=== PATIENT | male | born 1985 | race Caucasian/White ===

== ENCOUNTER 2019-06-25 09:44 | Emergency (ER) | payer OTHER, SELFPAY ==
[2019-06-25 09:55] VITALS: BP 121/86; PULSE 102; RESP 16; TEMP 36.7; O2SAT 95
--- NOTE | 2019-06-25 09:55 | ED.GENADULT ---
HPI - General Adult General Chief complaint: Upper Respiratory Infection Stated complaint: ST,congestion,cough Time Seen by Provider: 06/25/19 10:08 Source: patient and RN notes reviewed Mode of arrival: ambulatory Limitations: no limitations History of Present Illness HPI narrative: This is a 33 years old male presented office for evaluation of linger cough for several weeks.He was seen here about 2 weeks ago with similar symptoms, he got treated with steroid cough medicine and inhaler with minimal relief. Symptoms gotten worse for the last few day with hoarseness, head congestion,and intermittent productive cough.He also tried several other upso-saj-nrailjn for his cough with no relief the only thing that seem to work is Stephane pad. I reviewed patient previous visit. HPI - URI/Sore Throat General Chief Complaint: Upper Respiratory Infection Stated Complaint: Cough Time Seen by Provider: 06/10/19 13:25 Source: patient and RN notes reviewed Mode of arrival: ambulatory Limitations: no limitations History of Present Illness HPI Narrative: Patient presents today with a 4-day history of productive cough, chest wall pain. Denies any additional symptoms to include shortness of breath, fever, congestion, rhinorrhea. He has been taking Mucinex, rfdc-tfl-iymssay cough medicine and cough drops without relief. Reports history of bronchitis. Denies history of asthma. He is a non-smoker. MD elicited complaint: cough Related Data Home Medications Medication Instructions Recorded Confirmed atenolol 50 mg PO DAILY 06/25/19 06/25/19 cholecalciferol (vitamin D3) 2,000 unit PO DAILY 06/25/19 06/25/19 [Vitamin D3] enalapril maleate 5 mg PO DAILY 06/25/19 06/25/19 famotidine [Pepcid] 20 mg PO DAILY 06/25/19 06/25/19 fluticasone propionate [Flonase 1 spray INTRANASAL DAILY 06/25/19 06/25/19 Allergy Relief] levetiracetam [Keppra] 1,000 mg PO BID 06/25/19 06/25/19 omeprazole 40 mg PO DAILY 06/25/19 06/25/19 rivaroxaban [Xarelto] 20 mg PO DAILY 06/25/19 06/25/19 Allergies Allergy/AdvReac Type Severity Reaction Status Date / Time No Known Allergies Allergy Verified 05/02/19 12:43 Review of Systems Review of Systems: Narrative: CONSTITUTIONAL: Denies fever ENT: Reports congestion, hoarseness. Denies sore throat, otalgia. CARDIOVASCULAR: Denies chest pain, palpitations RESPIRATORY: Denies dyspnea, wheezing. Reports cough GASTROINTESTINAL: Denies abdominal pain, nausea, vomiting, diarrhea. GENITOURINARY: Denies urinary symptoms or discharge SKIN: Denies rash MUSCULOSKELETAL: Denies acute back pain, joint pain, or myalgia. NEUROLOGIC: Denies numbness, or focal weakness. 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 EYES: Sclera clear/white. Vision is grossly intact. EARS: External ears normal, auditory canals clear and without drainage, TMs normal without perforation. Hearing grossly intact. NOSE: External nose normal with no obvious nasal discharge, nares without redness, no rhinorrhea. THROAT: Mucous membranes moist, posterior pharynx erythema with drainage. Sound hoarse. NECK: Neck supple, non-tender without lymphadenopathy, masses or thyromegaly. CARDIOVASCULAR: tachy, rate and rhythm without murmurs, gallops, or rubs. RESPIRATORY: Clear to auscultation. Breath sounds equal bilaterally. No wheezes, rales, or rhonchi. GASTROINTESTINAL: Abdomen soft, non-tender, nondistended. Bowel sounds are active. No hepato-splenomegaly, or palpable ma
== END 2019-06-25 10:20 | disposition home or self-care (01) ==
PROVIDERS: Emergency Provider Nurse Practitioner
DX: J06.9 Acute upper respiratory infection, unspecified (principal); R05 Cough; G40.909 Epilepsy, unspecified, not intractable, without status epilepticus; K21.9 Gastro-esophageal reflux disease without esophagitis; Z86.718 Personal history of other venous thrombosis and embolism; Q25.5 Atresia of pulmonary artery; Q22.4 Congenital tricuspid stenosis
CPT/HCPCS: 99213; G0463

== ENCOUNTER 2019-08-03 10:12 | Emergency (ER) | payer OTHER, SELFPAY ==
[2019-08-03 10:22] VITALS: BP 105/92; PULSE 102; RESP 16; TEMP 36.8; O2SAT 98
--- NOTE | 2019-08-03 11:10 | ED.GENADULT ---
HPI - General Adult General Chief complaint: Eye Problems Stated complaint: R eye problems Source: patient and RN notes reviewed Mode of arrival: ambulatory Limitations: no limitations History of Present Illness HPI narrative: 33-year-old male presents with complaints of right eye irritation and redness for the past 2 days. No treatment. [place] says he can not keep his RT eye open and mother told him to come and get evaluated. Denies injuries or trauma to eye. [place] denies sensation of foreign body and has no recognition of getting anything into his eye (s). Mild redness, no drainage. No recalls of being outside or coming in contact of any material that could have gotten into his eyes. No exacerbating factors. Relieving factors is closing eyes. Denies blurred vision, double vision, or pain of eye with movement. Denies fever or chills. Remains active. Some parts of this dictation were generated by voice recognition software and may contain typographical and/or grammatical inaccuracies. Related Data Home Medications Medication Instructions Recorded Confirmed atenolol 50 mg PO DAILY 06/25/19 08/03/19 cholecalciferol (vitamin D3) 2,000 unit PO DAILY 06/25/19 08/03/19 [Vitamin D3] enalapril maleate 5 mg PO BID 06/25/19 08/03/19 famotidine [Pepcid] 20 mg PO DAILY 06/25/19 08/03/19 fluticasone propionate [Flonase 1 spray INTRANASAL DAILY 06/25/19 08/03/19 Allergy Relief] levetiracetam [Keppra] 1,000 mg PO BID 06/25/19 08/03/19 omeprazole 40 mg PO DAILY 06/25/19 08/03/19 rivaroxaban [Xarelto] 20 mg PO DAILY 06/25/19 06/25/19 albuterol sulfate [ProAir HFA] 2 inh INHALATION DIRECTED 08/03/19 08/03/19 Allergies Allergy/AdvReac Type Severity Reaction Status Date / Time No Known Allergies Allergy Verified 05/02/19 12:43 Review of Systems Review of Systems: Narrative: CONSTITUTIONAL: Denies fever, chills, sweats. EYES: Denies visual changes. Complains of RT eye redness, irritation. Denies foreign body sensation, discharge. ENT: Denies rhinorrhea, congestion, sore throat, otalgia. CARDIOVASCULAR: Denies chest pain, palpitations, edema. RESPIRATORY: Denies dyspnea, wheezing, cough. GASTROINTESTINAL: Denies abdominal pain, nausea, vomiting, diarrhea. GENITOURINARY: Denies dysuria, hematuria, abnormal discharge. SKIN: Denies rash or itching. MUSCULOSKELETAL: Denies acute back pain, joint pain, or myalgia. NEUROLOGIC: Denies numbness or focal weakness. PSYCHIATRIC: Denies anxiety or depression. All systems reviewed & are unremarkable except as noted in HPI and below. [facility] Past Medical History Medical History (Updated 08/03/19 @ 11:27 by FABIO Daniel) ADHD Asthma Epilepsy GERD (gastroesophageal reflux disease) History of DVT (deep vein thrombosis) Hypoplastic right heart Pulmonary atresia Thrombosis Tricuspid atresia Surgical History Surgical History (Updated 08/03/19 @ 11:27 by FABIO Daniel) History of chest tube placement History of vascular surgery Right coronary sinus repair Family History Family History (Updated 08/03/19 @ 11:28 by FABIO Daniel) Other No significant family history Social History Social History (Updated 08/03/19 @ 11:28 by FABIO Daniel) Smoking status: Never smoker Second hand tobacco smoke exposure: No Alcohol intake: never Substance use: never Living arrangements: with family Occupation/Education: unemployed Gender identity (if verbalized by the patient): Male Comments At time of signature, I have reviewed and agree with nursing past medical, surgical, social, and family history. Please see nursing chart for further information. There is no relevant family history pertinent to the presenting complaint. Exam Narrative: Exam Narrative: GENERAL: This is a well-nourished, well-developed patient, in no apparent distress. HEAD: normocephalic, atraumatic. EYES: PERRL. Sclera clear/white to LT eye only.
[2019-08-03 11:15] VITALS: PULSE 101
== END 2019-08-03 11:15 | disposition home or self-care (01) ==
PROVIDERS: Emergency Provider Nurse Practitioner Family
DX: S05.01XA Injury of conjunctiva and corneal abrasion without foreign body, right eye, initial encounter (principal); X58.XXXA Exposure to other specified factors, initial encounter; J45.909 Unspecified asthma, uncomplicated; G40.909 Epilepsy, unspecified, not intractable, without status epilepticus; K21.9 Gastro-esophageal reflux disease without esophagitis; Z86.718 Personal history of other venous thrombosis and embolism; Q22.6 Hypoplastic right heart syndrome; Q25.5 Atresia of pulmonary artery; Q22.4 Congenital tricuspid stenosis; Z79.01 Long term (current) use of anticoagulants
CPT/HCPCS: 99213; A9270; G0463

== ENCOUNTER 2019-08-15 11:00 | Emergency (ER) | payer OTHER, SELFPAY ==
[2019-08-15] VITALS (7 sets, daily range): BP systolic 117–143; BP diastolic 82–103; PULSE 96–118; RESP 16–20; TEMP 36.2–36.6; O2SAT 97–100
--- NOTE | ~2019-08-15 | XR_ITS ---
XR chest 1V portable 08/15/2019 11:45 Indication: Cough Procedure: AP portable chest Comparison: Comparison to multiple prior studies sequentially, with oldest reviewed study dated 02/09. Findings: Status post median sternotomy. Cardiomegaly. No focal air space disease, pulmonary edema, p leural effusion or suspected pneumothorax. There is dextroscoliosis of the thoracic spine. There is a pical pleural thickening. Impression: 1: No acute cardiopulmonary disease. 2: Cardiomegaly. Reviewed, dictated and finalized at location A. Impression: 1: No acute cardiopulmonary disease. 2: Cardiomegaly.
--- NOTE | 2019-08-15 11:18 | ED.NAVMDI ---
HPI - Nausea/Vomiting/Diarrhea General Chief complaint: Nausea/Vomiting/Diarrhea Stated complaint: vomiting and diarrhea Time Seen by Provider: 08/15/19 11:13 Source: patient, family (mother) and RN notes reviewed Mode of arrival: ambulatory Limitations: no limitations History of Present Illness HPI Narrative: A 33 y/o male presents to the ED with N/V/D for the past couple days. He states that he first developed a white productive cough 5 days ago and then 3 days ago he developed diarrhea, followed by N/V the next day. He reports associated SOB, FAY, and CP when he coughs. He notes that his rt ear is bugging him but is unable to describe it better. The pt's mother also notes that she works and [employer] and the pt's grandfather, who both live with the pt, works at [employer]. He denies any fevers, rhinorrhea, nasal congestion, sore throat, or dysuria. MD elicited complaint: nausea, vomiting and diarrhea Onset (ago): day(s) (a couple) Associated nausea: Yes Associated symptoms: chest pain (when he coughs), cough (white productive), headaches, shortness of breath and other (rt ear bugging him) Related Data Home Medications Medication Instructions Recorded Confirmed atenolol 50 mg PO DAILY 06/25/19 08/03/19 cholecalciferol (vitamin D3) 2,000 unit PO DAILY 06/25/19 08/03/19 [Vitamin D3] enalapril maleate 5 mg PO BID 06/25/19 08/03/19 famotidine [Pepcid] 20 mg PO DAILY 06/25/19 08/03/19 fluticasone propionate [Flonase 1 spray INTRANASAL DAILY 06/25/19 08/03/19 Allergy Relief] levetiracetam [Keppra] 1,000 mg PO BID 06/25/19 08/03/19 omeprazole 40 mg PO DAILY 06/25/19 08/03/19 rivaroxaban [Xarelto] 20 mg PO DAILY 06/25/19 06/25/19 albuterol sulfate [ProAir HFA] 2 inh INHALATION DIRECTED 08/03/19 08/03/19 lactulose 08/15/19 Allergies Allergy/AdvReac Type Severity Reaction Status Date / Time No Known Allergies Allergy Verified 05/02/19 12:43 Review of Systems Review of Systems: All systems reviewed & are unremarkable except as noted in HPI and below Constitutional: Constitutional: Denies fever(s) ENT: Denies nasal congestion, Denies nasal discharge, Denies sore throat and Reports other (rt ear bugging him) Cardiovascular: Cardiovascular: Reports chest pain (when he coughs) Respiratory: Respiratory: Reports cough (white productive) and Reports dyspnea Gastrointestinal: Gastrointestinal: Reports diarrhea, Reports nausea and Reports vomiting Genitourinary: Genitourinary: Denies dysuria Neurologic: Reports headache(s) PMFSH Past Medical History Medical History (Updated 08/15/19 @ 15:45 by Kaci Jacinto MD) ADHD Asthma Epilepsy Sathish type craniosynostosis GERD (gastroesophageal reflux disease) Heart murmur History of DVT (deep vein thrombosis) Hx of seizure disorder Hypoplastic right heart Pulmonary atresia Renal disease Thrombosis Tricuspid atresia Surgical History Surgical History (Updated 08/15/19 @ 12:24 by Pedro Pandya) History of Frank-Taussig shunt History of chest tube placement History of Ed shunt History of vascular surgery Right coronary sinus repair Hx of cardiac cath Family History Family History Other No significant family history Social History Social History Smoking status: Never smoker Second hand tobacco smoke exposure: No Alcohol intake: never Substance use: never Gender identity (if verbalized by the patient): Male Comments PCP: Dr. Israel. Cardiology: Dr. Raphael. Exam Const: General: cooperative, no acute distress and alert Nutritional Appearance: well nourished Orientation/consciousness: patient oriented x3 Limitations: no limitations HENMT: Mouth: Yes lip normal and Yes moist mucous membranes Resp: Effort & Inspection: normal respiratory effort Auscultation: clear to auscultation bilaterally Cardio: Rate: tachycardic Rhythm: regular
[2019-08-15 11:28] LABS: Basophils Percent Auto 0.3 % (0.2-1.2); Eosinophils Absolute Auto 0.1 K/mm3 (0-0.3); Eosinophils Percent Auto 0.9 % (0-4.4); Hematocrit 53.4 % (42.0-52.0); Hemoglobin 18.5 g/dL (14.0-18.0); Immature Granulocyte Absolute 0.03 K/mm3 (0.00-0.031); Immature Granulocyte Percent A 0.3 % (0-0.5); Lymphocytes Absolute Auto 1.67 K/mm3 (0.9-3.2); Lymphocytes Percent Auto 15.8 % (18.3-44.2); Mean Corpuscular HGB Conc 34.6 g/dl (32-36); Mean Corpuscular Volume 92.4 fl (80-100); Monocytes Absolute Auto 0.7 K/mm3 (0.1-0.6); Neutrophils Percent Auto 75.7 % (45.5-73.1); Platelet Count Result 180 k/mm3 (150-375); Red Blood Count 5.78 M/mm3 (4.6-6.20); Red Cell Distribution Width 12.2 % (11.5-14.5); White Blood Count 10.6 K/mm3 (4.5-10.0)
[2019-08-15] MEDS: LACTATED RINGERS 1,000 ML 999 ML IV CONT ×2 (11:30→14:34)
[2019-08-15 11:40] LABS: Alanine Aminotransferase 34 U/L (4-50); Alkaline Phosphatase 118 U/L (38-126); Aspartate Amino Transferase 37 U/L (17-59); Bilirubin,Total 3.8 mg/dL (0.2-1.3); Blood Urea Nitrogen 19 mg/dL (9-20); Calcium 9.6 mg/dL (8.4-10.2); Carbon Dioxide 24 mmol/L (22-30); Chloride 102 mmol/L (98-107); Estimated CRCL calculation 103 ml/min; Estimated Glomerular Filt Rate > 60; Glucose 111 mg/dL (75-110); Lipase 43 U/L (23-300); Potassium 4.4 mmol/L (3.4-5.0); Sodium 135 mmol/L (137-145)
--- NOTE | 2019-08-15 11:59 | PC.NURSE ---
Pt has urinal at bedside. Instructed to provide urine as soon as possible. IV fluids running.
--- NOTE | 2019-08-15 12:26 | PC.NURSE ---
Patient tried to provide urine at this time. Patient refused to allow straight cath at this time. Patient was told that we need urine for ordered tests. He still will not allow straight cath
[2019-08-15 13:00] LABS: Add Urine Microscopic? YES; Appearance Urine Clear (Clear); Bilirubin Urine Negative (Negative); Blood Urine Negative (Negative); Color Urine Yellow (Yellow); Glucose Urine UA Negative (Negative); Ketones Urine Negative (Negative); Leukocyte Esterase Ur Negative LEU/UL (Negative); Mucus Urine Rare /lpf; Nitrate Urine Negative (Negative); Protein Urine 3+ mg/dL (Negative); Urobilinogen Urine Negative mg/dL (<2.0); WBC Urine 0-3 /hpf
--- NOTE | 2019-09-23 13:49 | PC.NURSE ---
LATE ENTRY This note is being entered to document information to the patient's record. The following information was omitted on [08/15/2019], by [KL]. Pt received 1000ml infusion of LR that ended 08/15/2019 at 1535.
== END 2019-08-15 16:09 | disposition home or self-care (01) ==
PROVIDERS: Emergency Provider Emergency Medicine; PCP Family Medicine
DX: B34.9 Viral infection, unspecified (principal); E86.0 Dehydration; Z20.828 Contact with and (suspected) exposure to other viral communicable diseases; J45.909 Unspecified asthma, uncomplicated; G40.909 Epilepsy, unspecified, not intractable, without status epilepticus; K21.9 Gastro-esophageal reflux disease without esophagitis; Z86.718 Personal history of other venous thrombosis and embolism; Q25.5 Atresia of pulmonary artery; Q22.4 Congenital tricuspid stenosis; N28.9 Disorder of kidney and ureter, unspecified; Q24.8 Other specified congenital malformations of heart; I51.7 Cardiomegaly
CPT/HCPCS: 36415; 71045; 80053; 81001; 83690; 85025; 87804; 96360; 96361; 99283; J7120

== ENCOUNTER 2019-09-15 13:00 | Emergency (ER) | payer OTHER, SELFPAY ==
--- NOTE | ~2019-09-15 | XR_ITS ---
EXAMINATION: XR chest 2V DATE: 09/15/2019 13:55 INDICATION: Chest pain TECHNIQUE: PA and lateral views of the chest are obtained. COMPARISON: 08/15/2019 FINDINGS: The lungs are free of acute opacities. There is no pleural effusion or pneumothorax. Cardio megaly is noted. There are changes of congenital heart surgery. There is mild thoracic spondylosis. IMPRESSION: 1. No acute cardiopulmonary abnormality. Reviewed, dictated and finalized at location A.
[2019-09-15 13:06] VITALS: BP 129/89; PULSE 123; RESP 26; TEMP 36.6; O2SAT 97
[2019-09-15 13:21] VITALS: PULSE 108
--- NOTE | 2019-09-15 13:26 | ED.CHESTPAIN ---
HPI - Chest Pain General Chief Complaint: Chest Pain Stated Complaint: throwing up, chest pain, fast heart beat Time Seen by Provider: 09/15/19 13:21 History of Present Illness HPI narrative: Patient is a 33-year-old male with history of congenital heart disease with cardiac surgery as a child who presents the ER with chest pain. Chest pain occurred yesterday while coughing. When he coughs and has the pain will last for 2 minutes maximum. It is alleviated by rest and he has no exertional chest pain. No history of actual coronary disease requiring intervention. He was recently in the ER for a viral type illness. He follows with Dr. Israel. Denies any new fever/chills/sweats/sore throat/dyspnea. He does have intermittent cough without postnasal drip. Family is with him and had no additional concerns. Patient has been staying at home and has not been exposed to any other illness in the community that they are aware of. Related Data Home Medications Medication Instructions Recorded Confirmed atenolol 50 mg PO DAILY 06/25/19 08/03/19 cholecalciferol (vitamin D3) 2,000 unit PO DAILY 06/25/19 08/03/19 [Vitamin D3] enalapril maleate 5 mg PO BID 06/25/19 08/03/19 famotidine [Pepcid] 20 mg PO DAILY 06/25/19 08/03/19 fluticasone propionate [Flonase 1 spray INTRANASAL DAILY 06/25/19 08/03/19 Allergy Relief] levetiracetam [Keppra] 1,000 mg PO BID 06/25/19 08/03/19 omeprazole 40 mg PO DAILY 06/25/19 08/03/19 rivaroxaban [Xarelto] 20 mg PO DAILY 06/25/19 06/25/19 albuterol sulfate [ProAir HFA] 2 inh INHALATION DIRECTED 08/03/19 08/03/19 lactulose 08/15/19 Allergies Allergy/AdvReac Type Severity Reaction Status Date / Time No Known Allergies Allergy Verified 05/02/19 12:43 Review of Systems Review of Systems: All systems reviewed & are unremarkable except as noted in HPI and below Constitutional: Constitutional: Denies chills, Denies fever(s) and Denies weakness ENT: Denies nasal congestion and Denies sore throat Cardiovascular: Cardiovascular: Reports chest pain and Denies radiating jaw, neck or arm pain Respiratory: Respiratory: Reports cough, Denies dyspnea and Denies wheezing Gastrointestinal: Gastrointestinal: Denies abdominal pain, Denies nausea and Denies vomiting PMFSH Past Medical History Medical History (Updated 09/15/19 @ 15:31 by Kendall Flanagan MD) ADHD Asthma Epilepsy Sathish type craniosynostosis GERD (gastroesophageal reflux disease) Heart murmur History of DVT (deep vein thrombosis) Hx of seizure disorder 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 HEAD: Normocephalic, atraumatic. NECK: Supple. CHEST: Clear to auscultation. No respiratory distress. HEART: tachycardic and regular with a gallop. Normal peripheral pulses. ABDOMEN: Soft, nontender, nondistended. EXTREMITIES: Normal range of motion. No edema. SKIN: Warm, dry, no rash. NEURO: Alert and oriented x3. Course Course Emergency Course: Discussed results with the patient and his family member. Also discussed with Dr. Israel. The plan is to add blood cultures as patient has been in the hospital twice in the last month with concerns for infection. Patient has a leukocytosis with a shift without any source of infection. Patient received IV vancomycin and then receive Augmentin for home.
[2019-09-15 13:48] LABS: Basophils Percent Auto 0.2 % (0.2-1.2); Eosinophils Percent Auto 0.2 % (0-4.4); Hematocrit 52.5 % (42.0-52.0); Hemoglobin 17.8 g/dL (14.0-18.0); Immature Granulocyte Absolute 0.06 K/mm3 (0.00-0.031); Immature Granulocyte Percent A 0.4 % (0-0.5); Lymphocytes Absolute Auto 0.55 K/mm3 (0.9-3.2); Lymphocytes Percent Auto 3.5 % (18.3-44.2); Mean Corpuscular HGB Conc 33.9 g/dl (32-36); Mean Corpuscular Hemoglobin 31.6 pg (26-34); Mean Corpuscular Volume 93.1 fl (80-100); Monocytes Absolute Auto 0.8 K/mm3 (0.1-0.6); Monocytes Percent Auto 5.1 % (2.6-8.5); Neutrophils Absolute Auto 14.4 K/mm3 (1.3-6.7); Neutrophils Percent Auto 90.6 % (45.5-73.1); Platelet Count Result 150 k/mm3 (150-375); Red Blood Count 5.64 M/mm3 (4.6-6.20); Red Cell Distribution Width 12.4 % (11.5-14.5); White Blood Count 15.9 K/mm3 (4.5-10.0)
--- NOTE | 2019-09-15 13:55 | ECG_ITS ---
Measurements Intervals [place] Rate: 112 P: 31 UT: 172 QRS: 195 QRSD: 111 T: 42 QT: 332 QTc: 455 Interpretive Statements SINUS TACHYCARDIA POSSIBLE LEFT ATRIAL ENLARGEMENT RIGHT BUNDLE BRANCH BLOCK INFERIOR INFARCT, AGE INDETERMINATE BASELINE WANDER- V4 ABNORMAL ECG Electronically Signed On 09-15-2019 14:54:53 CDT by Quoc Cedillo D.O.
[2019-09-15 13:58] LABS: INR 1.2; Partial Thromboplastin Time 32.7 SECONDS (22.3-36.8); Prothrombin Time 14.8 Seconds (11.1-14.7)
[2019-09-15 14:32] LABS: Blood Urea Nitrogen 15 mg/dL (9-20); Calcium 9.9 mg/dL (8.4-10.2); Carbon Dioxide 23 mmol/L (22-30); Chloride 103 mmol/L (98-107); Estimated CRCL calculation 137 ml/min; Estimated Glomerular Filt Rate > 60; Glucose 115 mg/dL (75-110); Potassium 4.8 mmol/L (3.4-5.0); Sodium 138 mmol/L (137-145)
[2019-09-15 14:44] LABS: Troponin I < 0.012 ng/mL (0.000-0.034)
[2019-09-15 17:19] VITALS: BP 104/71; PULSE 95; RESP 20; O2SAT 97
[2019-09-16 13:23] LABS: SARS-CoV-2 RNA PCR Negative
== END 2019-09-15 17:20 | disposition home or self-care (01) ==
PROVIDERS: Emergency Provider Emergency Medicine; PCP Family Medicine
DX: R07.9 Chest pain, unspecified (principal); D72.829 Elevated white blood cell count, unspecified; Z20.828 Contact with and (suspected) exposure to other viral communicable diseases; R00.0 Tachycardia, unspecified; I45.10 Unspecified right bundle-branch block; R94.31 Abnormal electrocardiogram [ECG] [EKG]; F90.9 Attention-deficit hyperactivity disorder, unspecified type; J45.909 Unspecified asthma, uncomplicated; G40.909 Epilepsy, unspecified, not intractable, without status epilepticus; K21.9 Gastro-esophageal reflux disease without esophagitis; Q22.4 Congenital tricuspid stenosis; Z86.718 Personal history of other venous thrombosis and embolism; Z79.01 Long term (current) use of anticoagulants; Z87.74 Personal history of (corrected) congenital malformations of heart and circulatory system; N28.9 Disorder of kidney and ureter, unspecified; Q25.5 Atresia of pulmonary artery; Q75.0 Craniosynostosis
CPT/HCPCS: 36415; 71046; 80048; 84484; 85025; 85610; 85730; 87040; 87635; 93005; 96365; 99284; C9803; J3370; U0003

== ENCOUNTER 2020-07-15 07:35 | Emergency (ER) | payer OTHER, SELFPAY ==
--- NOTE | ~2020-07-15 | XR_ITS ---
EXAMINATION: XR chest 2V DATE: 07/15/2020 08:12 INDICATION: Chest pain TECHNIQUE: PA and lateral views of the chest are obtained. COMPARISON: 09/15/2019 FINDINGS: The lungs are free of acute opacities. There is no pleural effusion or pneumothorax. Cardio megaly is noted. There are changes of congenital heart surgery. There is mild thoracic spondylosis. IMPRESSION: 1. No acute cardiopulmonary abnormality. Reviewed, dictated and finalized at location A. DENT COORDINATOR
[2020-07-15 07:41] VITALS: BP 112/97; PULSE 120; RESP 12; TEMP 36.2; O2SAT 96
--- NOTE | 2020-07-15 07:41 | ECG_ITS ---
Measurements Intervals [place] Rate: 119 P: 115 SD: 180 QRS: 136 QRSD: 108 T: 35 QT: 319 QTc: 449 Interpretive Statements SINUS TACHYCARDIA RIGHT AXIS DEVIATION POSSIBLE LEFT ATRIAL ENLARGEMENT INCOMPLETE RIGHT BUNDLE BRANCH BLOCK ABNORMAL ECG Electronically Signed On 07-15-2020 8:03:10 MELT HELPER by Quoc Cedillo D.O.
[2020-07-15 07:50] VITALS: PULSE 118
--- NOTE | 2020-07-15 07:52 | ED.CHESTPAIN ---
HPI - Chest Pain General Chief Complaint: Chest Pain Stated Complaint: cp Time Seen by Provider: 07/15/20 07:43 Source: patient Mode of arrival: ambulatory Limitations: no limitations History of Present Illness HPI narrative: A 37-year-old male comes into the emergency department with complaints of chest pain starting just prior to arrival. Patient states that started earlier this morning. He had a history of a cough that is been persistent for the last couple of weeks. Patient notes that he has been tested for Covid and found to be negative. He states that he has had pain like this before, his mother notes that he followed up with a arcade attendant at that time and had his blood pressure medications adjusted. Patient has an IDD, history difficult to obtain. Related Data Home Medications Medication Instructions Recorded Confirmed atenolol 50 mg PO DAILY 06/25/19 08/03/19 cholecalciferol (vitamin D3) 2,000 unit PO DAILY 06/25/19 08/03/19 [Vitamin D3] enalapril maleate 5 mg PO BID 06/25/19 08/03/19 famotidine [Pepcid] 20 mg PO DAILY 06/25/19 08/03/19 fluticasone propionate [Flonase 1 spray INTRANASAL DAILY 06/25/19 08/03/19 Allergy Relief] levetiracetam [Keppra] 1,000 mg PO BID 06/25/19 08/03/19 omeprazole 40 mg PO DAILY 06/25/19 08/03/19 rivaroxaban [Xarelto] 20 mg PO DAILY 06/25/19 06/25/19 albuterol sulfate [ProAir HFA] 2 inh INHALATION DIRECTED 08/03/19 08/03/19 lactulose 08/15/19 Allergies Allergy/AdvReac Type Severity Reaction Status Date / Time No Known Allergies Allergy Verified 07/15/20 07:52 Review of Systems Review of Systems: Narrative: CONSTITUTIONAL: Denies fever, chills, or sweats. EYES: Denies visual changes, redness, or discharge. ENT: Denies rhinorrhea, congestion, sore throat, or otalgia. CARDIOVASCULAR: Denies palpitations, or edema. Endorses chest pain RESPIRATORY: Denies cough or dyspnea. GASTROINTESTINAL: Denies abdominal pain, nausea, vomiting, or diarrhea. GENITOURINARY: Denies dysuria or hematuria. SKIN: Denies rash or itching. MUSCULOSKELETAL: Denies back pain, joint pain, or myalgia. NEUROLOGIC: Denies headache, numbness, dizziness, or weakness. PSYCHIATRIC: Denies anxiety or depression. 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 HEAD: Normocephalic, atraumatic. EYES: PERRLA and EOMI. ENT: Nares clear, no rhinorrhea or epistaxis. Mucous membranes moist. NECK: Supple. No adenopathy or masses. No carotid bruits or JVD CHEST: Clear to auscultation. No respiratory distress. No wheezes rales or rhonchi HEART: Regular rate and rhythm. No murmur heard. Normal peripheral pulses. ABDOMEN: Soft, nontender, nondistended, normal active bowel sounds. EXTREMITIES: Normal range of motion. No edema. SKIN: Warm, dry, no rash. NEURO: No focal deficits. Alert and oriented x3. PSYCH: Flat affect, IDD. Course Reevaluation(s) Reevaluation #1: Patient reev
[2020-07-15 08:08] LABS: Basophils Percent Auto 0.2 % (0.2-1.2); Eosinophils Percent Auto 0.2 % (0-4.4); Hematocrit 51.5 % (42.0-52.0); Hemoglobin 18.2 g/dL (14.0-18.0); Immature Granulocyte Absolute 0.03 K/mm3 (0.00-0.031); Immature Granulocyte Percent A 0.3 % (0-0.5); Immature Platelet Fraction Pct 5.3 % (0.9-11.2); Lymphocytes Absolute Auto 0.28 K/mm3 (0.9-3.2); Lymphocytes Percent Auto 2.6 % (18.3-44.2); Mean Corpuscular HGB Conc 35.3 g/dl (32-36); Mean Corpuscular Hemoglobin 32.2 pg (26-34); Mean Corpuscular Volume 91.2 fl (80-100); Mean Platelet Volume 11.1 fl (7.4-10.4); Monocytes Absolute Auto 0.4 K/mm3 (0.1-0.6); Monocytes Percent Auto 3.6 % (2.6-8.5); Neutrophils Absolute Auto 10.2 K/mm3 (1.3-6.7); Neutrophils Percent Auto 93.1 % (45.5-73.1); Platelet Count Result 130 k/mm3 (150-375); Red Blood Count 5.65 M/mm3 (4.6-6.20); Red Cell Distribution Width 12.4 % (11.5-14.5)
[2020-07-15 08:16] LABS: INR 1.3; Prothrombin Time 16.3 Seconds (11.1-14.7)
[2020-07-15 08:19] LABS: D Dimer 0.34 ug/mL (<0.48)
[2020-07-15 08:21] LABS: Alanine Aminotransferase 35 U/L (4-50); Albumin Level 4.6 g/dL (3.5-5.1); Alkaline Phosphatase 116 U/L (38-126); Anion Gap 11 mmol/L (8-16); Aspartate Amino Transferase 32 U/L (17-59); Bilirubin,Total 2.9 mg/dL (0.2-1.3); Blood Urea Nitrogen 20 mg/dL (9-20); Calcium 9.5 mg/dL (8.4-10.2); Carbon Dioxide 21 mmol/L (22-30); Chloride 106 mmol/L (98-107); Estimated CRCL calculation 114 ml/min; Estimated Glomerular Filt Rate > 60; Glucose 133 mg/dL (75-110); Lipase 66 U/L (23-300); Potassium 4.4 mmol/L (3.4-5.0); Sodium 138 mmol/L (137-145)
[2020-07-15 08:32] LABS: Troponin I < 0.012 ng/mL (0.000-0.034)
[2020-07-15 08:40] VITALS: BP 116/79; PULSE 116; RESP 24; O2SAT 97
[2020-07-15] MEDS: KETOROLAC 15 MG/ML VIAL (*BKC) IV PUSH (09:12)
[2020-07-15 09:52] VITALS: BP 117/72; PULSE 118; RESP 18; O2SAT 100
[2020-07-15 10:17] LABS: Troponin I < 0.012 ng/mL (0.000-0.034)
[2020-07-15] MEDS: LACTATED RINGERS 1,000 ML 999 ML IV CONT (10:31)
[2020-07-15 10:51] VITALS: BP 102/86; PULSE 115; RESP 22; O2SAT 93
[2020-07-15 11:27] VITALS: BP 102/74; PULSE 117; RESP 18; O2SAT 100
== END 2020-07-15 11:28 | disposition home or self-care (01) ==
PROVIDERS: Emergency Provider Emergency Medicine; PCP Family Medicine
DX: M94.0 Chondrocostal junction syndrome [Tietze] (principal); R07.1 Chest pain on breathing; J45.909 Unspecified asthma, uncomplicated; G40.909 Epilepsy, unspecified, not intractable, without status epilepticus; K21.9 Gastro-esophageal reflux disease without esophagitis; Z86.718 Personal history of other venous thrombosis and embolism; N28.9 Disorder of kidney and ureter, unspecified; F79 Unspecified intellectual disabilities; Z87.74 Personal history of (corrected) congenital malformations of heart and circulatory system; Z79.01 Long term (current) use of anticoagulants; R00.0 Tachycardia, unspecified; I45.10 Unspecified right bundle-branch block; R94.31 Abnormal electrocardiogram [ECG] [EKG]
CPT/HCPCS: 36415; 71046; 80053; 83690; 84484; 85025; 85055; 85380; 85610; 93005; 96361; 96374; 99284; J1885; J7120

== ENCOUNTER 2020-07-18 09:32 | Emergency (ER) | payer OTHER, SELFPAY ==
[2020-07-18 10:09] VITALS: BP 120/92; PULSE 90; RESP 20; TEMP 36.9; O2SAT 99
--- NOTE | 2020-07-18 10:17 | ED.URI ---
HPI - URI/Sore Throat General Chief Complaint: Upper Respiratory Infection Stated Complaint: Cough Time Seen by Provider: 07/18/20 09:34 Source: patient Mode of arrival: ambulatory Limitations: no limitations History of Present Illness HPI Narrative: 34-year-old male presents to [facility] with complaints of intermittent productive cough for the past 4 days. Patient reports he has noticed white-colored phlegm. Patient was evaluated at [facility] emergency room on 07/15 for cough and chest tightness. Patient had negative chest x-ray and negative Covid swab at that time. Patient reports that he has been taking [id number] [id number] with minimal relief. Patient denies sick contacts. Patient denies recent travel. Patient is a non-smoker. Patient denies shortness of breath, wheezing, nausea, vomiting, diarrhea, fever, body aches or chills. MD elicited complaint: cough Onset (ago): day(s) (4) Consistency: intermittent Able to tolerate fluids by mouth: Yes Exacerbating factors: nothing Relieving factors: nothing Treatments prior to arrival: cold medicine Related Data Home Medications Medication Instructions Recorded Confirmed atenolol 50 mg PO DAILY 06/25/19 08/03/19 cholecalciferol (vitamin D3) 2,000 unit PO DAILY 06/25/19 08/03/19 [Vitamin D3] enalapril maleate 5 mg PO BID 06/25/19 08/03/19 famotidine [Pepcid] 20 mg PO DAILY 06/25/19 08/03/19 fluticasone propionate [Flonase 1 spray INTRANASAL DAILY 06/25/19 08/03/19 Allergy Relief] levetiracetam [Keppra] 1,000 mg PO BID 06/25/19 08/03/19 omeprazole 40 mg PO DAILY 06/25/19 08/03/19 rivaroxaban [Xarelto] 20 mg PO DAILY 06/25/19 06/25/19 albuterol sulfate [ProAir HFA] 2 inh INHALATION DIRECTED 08/03/19 08/03/19 lactulose 08/15/19 fluticasone propionate [Flovent INHALATION 07/18/20 Diskus] levetiracetam PO 07/18/20 Allergies Allergy/AdvReac Type Severity Reaction Status Date / Time No Known Allergies Allergy Verified 07/15/20 07:52 Review of Systems Constitutional: Constitutional: Denies chills, Denies fatigue, Denies fever(s) and Denies weakness ENT: Denies dysphagia, Denies dizziness, Denies epistaxis and Denies sore throat Cardiovascular: Cardiovascular: Denies chest pain, Denies rapid heart rate, Denies radiating jaw, neck or arm pain and Denies slow heart rate Respiratory: Respiratory: Denies chest congestion, Reports cough, Denies dyspnea and Denies wheezing Gastrointestinal: Gastrointestinal: Denies abdominal pain, Denies diarrhea, Denies nausea and Denies vomiting Neurologic: Denies dizziness PMFSH Past Medical History Medical History ADHD Asthma Epilepsy Sathish type craniosynostosis GERD (gastroesophageal reflux disease) Heart murmur History of DVT (deep vein thrombosis) Hx of seizure disorder 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 There is no relevant family history pertinent to the presenting complaint. Exam Const: General: no acute distress and alert Nutritional Appearance: well nourished Orientation/consciousness: patient oriented x3 HENMT: Head: normal to inspection Ears: externa
== END 2020-07-18 10:24 | disposition home or self-care (01) ==
PROVIDERS: Emergency Provider Nurse Practitioner Family; PCP Family Medicine
DX: J06.9 Acute upper respiratory infection, unspecified (principal); J45.909 Unspecified asthma, uncomplicated; K21.9 Gastro-esophageal reflux disease without esophagitis; R01.1 Cardiac murmur, unspecified; Z86.718 Personal history of other venous thrombosis and embolism; Q25.5 Atresia of pulmonary artery; Q22.4 Congenital tricuspid stenosis; G40.909 Epilepsy, unspecified, not intractable, without status epilepticus; Z79.01 Long term (current) use of anticoagulants
CPT/HCPCS: 99213; G0463

== ENCOUNTER 2020-10-24 10:24 | Emergency (ER) | payer OTHER, SELFPAY ==
[2020-10-24 10:31] VITALS: BP 120/88; PULSE 89; RESP 16; TEMP 36.2; O2SAT 99
--- NOTE | 2020-10-24 10:39 | ED.SKABFB ---
HPI - Skin/Abscess/Foreign Bdy General Chief complaint: Skin/Abscess/Foreign Body Stated complaint: rash under left armpit Time Seen by Provider: 10/24/20 10:42 Source: patient and RN notes reviewed Mode of arrival: ambulatory Limitations: no limitations History of Present Illness HPI narrative: 34-year-old male presents with concern for a rash under his left arm. Reports history of similar rashes. He reports he noticed the area yesterday, it is red and dry. He denies any tenderness, itching, drainage. Denies any other rash. Reports he put cream for dry skin on the rash with no relief. MD complaint: rash Related Data Home Medications Medication Instructions Recorded Confirmed atenolol 50 mg PO DAILY 06/25/19 08/03/19 cholecalciferol (vitamin D3) 2,000 unit PO DAILY 06/25/19 08/03/19 [Vitamin D3] enalapril maleate 5 mg PO BID 06/25/19 08/03/19 famotidine [Pepcid] 20 mg PO DAILY 06/25/19 08/03/19 fluticasone propionate [Flonase 1 spray INTRANASAL DAILY 06/25/19 08/03/19 Allergy Relief] levetiracetam [Keppra] 1,000 mg PO BID 06/25/19 08/03/19 omeprazole 40 mg PO DAILY 06/25/19 08/03/19 rivaroxaban [Xarelto] 20 mg PO DAILY 06/25/19 06/25/19 albuterol sulfate [ProAir HFA] 2 inh INHALATION DIRECTED 08/03/19 08/03/19 lactulose 08/15/19 fluticasone propionate [Flovent INHALATION 07/18/20 Diskus] levetiracetam PO 07/18/20 Allergies Allergy/AdvReac Type Severity Reaction Status Date / Time No Known Allergies Allergy Verified 07/15/20 07:52 Review of Systems Review of Systems: Narrative: CONSTITUTIONAL: Denies malaise, chills, sweats, or fever. ENT: Denies lips, swollen tongue, difficulty swallowing CARDIOVASCULAR: Denies chest pain, palpitations, or edema. RESPIRATORY: Denies cough or dyspnea. GASTROINTESTINAL: Denies abdominal pain, nausea, vomiting, diarrhea SKIN: Reports red rash under his left arm MUSCULOSKELETAL: Denies myalgia. 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 Thrombosis Tricuspid atresia Surgical History Surgical History History of Frank-Taussig shunt History of chest tube placement History of Ed shunt History of vascular surgery Right coronary sinus repair Hx of cardiac cath Family History Family History Other No significant family history Social History Social History Smoking status: Never smoker Second hand tobacco smoke exposure: No Alcohol intake: never Substance use: never Gender identity (if verbalized by the patient): Male Comments At time of signature, agree with nursing past medical, surgical, social and family history. There is no relevant family history pertinent to the presenting complaint Exam Narrative: Exam Narrative: GENERAL: Well-appearing, well-nourished, and in no acute distress. HEAD: Normocephalic, atraumatic. EYES: PERRLA, conjunctivae clear, and EOMI. ENT: Mucous membranes moist. Oropharynx without edema, erythema or lesions. NECK: Supple. No lymphadenopathy CHEST: Clear to auscultation. No respiratory distress. HEART: Regular rate and rhythm. SKIN: Warm, dry. Circular patch of erythema, slightly raised in the left axilla approximately 4 cm in diameter NEURO: Alert and oriented x3. PSYCH: Normal mood and affect Course Course Emergency Course: Patient is aware of diagnosis, understands and agrees to treatment plan. Anticipatory guidance given. Patient agrees to follow-up as directed and is aware of reasons to see
== END 2020-10-24 10:55 | disposition home or self-care (01) ==
PROVIDERS: Emergency Provider Nurse Practitioner
DX: B35.4 Tinea corporis (principal); G40.909 Epilepsy, unspecified, not intractable, without status epilepticus; J45.909 Unspecified asthma, uncomplicated; Q75.0 Craniosynostosis; K21.9 Gastro-esophageal reflux disease without esophagitis; R01.1 Cardiac murmur, unspecified; Z86.718 Personal history of other venous thrombosis and embolism; Q24.8 Other specified congenital malformations of heart; Q25.5 Atresia of pulmonary artery; Q22.4 Congenital tricuspid stenosis; Z79.01 Long term (current) use of anticoagulants
CPT/HCPCS: 99213; G0463

== ENCOUNTER 2020-12-11 09:16 | Emergency (ER) | payer OTHER, SELFPAY ==
[2020-12-11 09:27] VITALS: BP 103/74; PULSE 88; RESP 20; TEMP 38.2; O2SAT 95
--- NOTE | 2020-12-11 09:28 | ED.URI ---
HPI - URI/Sore Throat General Chief Complaint: Upper Respiratory Infection Stated Complaint: Cough,Chills Time Seen by Provider: 12/11/20 09:40 Source: patient and RN notes reviewed Mode of arrival: ambulatory Limitations: no limitations History of Present Illness HPI Narrative: 35-year old male with history of asthma and epilepsy presents with concern for 3-day history of cough, chills, body aches. Reports his mother tested positive for Covid. He reports he has been taking Robitussin which helps somewhat with the cough. Reports he has been using his albuterol inhaler once daily. He denies nausea, vomiting, diarrhea. MD elicited complaint: cough Related Data Home Medications Medication Instructions Recorded Confirmed atenolol 50 mg PO DAILY 06/25/19 12/11/20 cholecalciferol (vitamin D3) 2,000 unit PO DAILY 06/25/19 12/11/20 [Vitamin D3] enalapril maleate 5 mg PO BID 06/25/19 12/11/20 levetiracetam [Keppra] 1,000 mg PO BID 06/25/19 12/11/20 rivaroxaban [Xarelto] 20 mg PO DAILY 06/25/19 12/11/20 albuterol sulfate [ProAir HFA] 2 inh INHALATION DIRECTED 08/03/19 12/11/20 fluticasone propionate [Flovent 2 inh INHALATION DIRECTED 12/11/20 12/11/20 Diskus] Allergies Allergy/AdvReac Type Severity Reaction Status Date / Time No Known Allergies Allergy Verified 12/11/20 09:31 Review of Systems Review of Systems: Narrative: CONSTITUTIONAL: Reports malaise, chills. Denies sweats, or fever. EYES: Denies visual changes, redness, or discharge. ENT: Reports rhinorrhea, congestion, sore throat. Denies sinus pain, otalgia CARDIOVASCULAR: Denies chest pain, palpitations, or edema. RESPIRATORY: Reports cough, occasional dyspnea. GASTROINTESTINAL: Denies abdominal pain, nausea, vomiting, diarrhea SKIN: Denies rash or itching. MUSCULOSKELETAL: Reports myalgia. NEUROLOGIC: Denies headache. 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 Thrombosis Tricuspid atresia Surgical History Surgical History History of Frank-Taussig shunt History of chest tube placement History of Ed shunt History of vascular surgery Right coronary sinus repair Hx of cardiac cath Family History Family History Other No significant family history Social History Social History Smoking status: Never smoker Second hand tobacco smoke exposure: No Alcohol intake: never Substance use: never Gender identity (if verbalized by the patient): Male Comments At time of signature, agree with nursing past medical, surgical, social and family history. There is no relevant family history pertinent to the presenting complaint Exam Narrative: Exam Narrative: GENERAL: Well-appearing, well-nourished, and in no acute distress. HEAD: Normocephalic EYES: PERRLA, conjunctivae clear ENT: Nares clear, turbinates edematous and erythematous, clear discharge. Mucous membranes moist. TM pearly yo with dull light reflex bilaterally; no tragal tenderness. Oropharynx erythematous without lesions. Tonsils enlarged and without exudate, no drooling, no hoarseness, no trismus, uvula midline. NECK: Supple. No lymphadenopathy CHEST: Clear to auscultation, breath sounds equal. No wheezing, rhonchi, rales, or stridor. No respiratory distress, speaks in full sentences. HEART: Regular rate and rhythm. No murmur heard. SKIN: Warm, dry, no rash. NEURO: Alert and oriented x3. PSYCH: Normal mood and affect Course Course Emergency Course: Patient is aware
== END 2020-12-11 10:56 | disposition home or self-care (01) ==
PROVIDERS: Emergency Provider Nurse Practitioner; PCP Family Medicine
DX: U07.1 COVID-19 (principal); G40.909 Epilepsy, unspecified, not intractable, without status epilepticus; K21.9 Gastro-esophageal reflux disease without esophagitis; R01.1 Cardiac murmur, unspecified; Z86.718 Personal history of other venous thrombosis and embolism; Q89.8 Other specified congenital malformations; Q22.4 Congenital tricuspid stenosis; Q22.6 Hypoplastic right heart syndrome
CPT/HCPCS: 87081; 87426; 87880; 99213; C9803; G0463

== ENCOUNTER → 2020-12-31 09:15 | Outpatient (CLI) | payer OTHER, SELFPAY ==
[2021-01-01 17:39] LABS: SARS-CoV-2 RNA PCR Positive
== END ==
PROVIDERS: PCP Family Medicine; Visit Provider Family Medicine
DX: U07.1 COVID-19 (principal); R68.89 Other general symptoms and signs
CPT/HCPCS: C9803; U0003; U0005

== ENCOUNTER → 2021-01-14 09:37 | Outpatient (CLI) | payer OTHER, SELFPAY ==
[2021-01-15 01:23] LABS: SARS-CoV-2 RNA PCR Negative
== END ==
PROVIDERS: PCP Family Medicine; Visit Provider Family Medicine
DX: R68.89 Other general symptoms and signs (principal); Z20.822 Contact with and (suspected) exposure to COVID-19
CPT/HCPCS: C9803; U0003; U0005

== ENCOUNTER 2021-05-19 11:45 | Emergency (ER) | payer OTHER, SELFPAY ==
[2021-05-19 11:55] VITALS: BP 114/74; PULSE 84; RESP 16; TEMP 36.6; O2SAT 95
--- NOTE | 2021-05-19 12:01 | ED.URI ---
HPI - URI/Sore Throat General Chief Complaint: Upper Respiratory Infection Stated Complaint: Cough Time Seen by Provider: 05/19/21 11:55 Source: patient Mode of arrival: ambulatory Limitations: no limitations History of Present Illness HPI Narrative: Nicholas is a 35-year-old male patient who ambulated into the [facility]. Patient states he has had a slight cough for 2 days, sinus pressure, and feeling bad. Patient states he is use [id number] cough medicine without relief. MD elicited complaint: cough Related Data Home Medications Medication Instructions Recorded Confirmed cholecalciferol (vitamin D3) 2,000 unit PO DAILY 06/25/19 05/19/21 [Vitamin D3] levetiracetam [Keppra] 1,000 mg PO BID 06/25/19 05/19/21 rivaroxaban [Xarelto] 20 mg PO DAILY 06/25/19 05/19/21 albuterol sulfate [ProAir HFA] 2 inh INHALATION DIRECTED 08/03/19 05/19/21 fluticasone propionate [Flovent 2 inh INHALATION DIRECTED 12/11/20 05/19/21 Diskus] Allergies Allergy/AdvReac Type Severity Reaction Status Date / Time No Known Allergies Allergy Verified 12/11/20 09:31 Review of Systems Review of Systems: CONSTITUTIONAL: Denies body aches, fever, chills, or sweats. EYES: Denies visual changes, redness, or discharge. ENT: + rhinorrhea+ congestion, denies sore throat, or otalgia. CARDIOVASCULAR: Denies chest pain, palpitations, or edema. RESPIRATORY: + cough denies dyspnea. GASTROINTESTINAL: Denies abdominal pain, nausea, vomiting, or diarrhea. GENITOURINARY: Denies dysuria or hematuria. SKIN: Denies rash, itching, or wounds. MUSCULOSKELETAL: Denies back pain, joint pain, or myalgia. NEUROLOGIC: Denies headache, numbness, tingling, or weakness. PSYCH: Denies depression or anxiety. 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 Thrombosis Tricuspid atresia Surgical History Surgical History History of Frank-Taussig shunt History of chest tube placement History of Ed shunt History of vascular surgery Right coronary sinus repair Hx of cardiac cath Family History Family History Other No significant family history Social History Social History Smoking status: Never smoker Second hand tobacco smoke exposure: No Alcohol intake: never Substance use: never Gender identity (if verbalized by the patient): Male Comments At time of signature, I have reviewed and agree with nursing past medical, surgical, social and family history unless otherwise noted. Please see nursing chart for further information. There is no relevant family history pertinent to the presenting complaint Exam Narrative: GENERAL: Well-appearing, well-nourished, and in no acute distress. HEAD: Normocephalic, atraumatic. EYES: EOMI. No redness or drainage. Conjunctivae normal. ENT: Mucous membranes pink and mildly dry. Nasal membranes are erythematous with clear rhinorrhea. Bilateral tympanic membranes are dull with minimal fluid and no erythema. Posterior pharynx is erythemic with mild edema moderate amount of postnasal drainage.. Uvula midline. NECK: Normal AROM. Supple. No lymphadenopathy. CHEST: No respiratory distress. Clear to auscultation. MUSCULOSKELETAL: No bony tenderness. EXTREMITIES: Normal range of motion. No edema. SKIN: Warm, dry, no rash. Capillary refill normal. Normal skin turgor. NEURO: No focal deficits. Alert and oriented x3. Gait steady. PSYCH: Normal affect. No signs of depression or anxiety. Co
== END 2021-05-19 12:52 | disposition home or self-care (01) ==
PROVIDERS: Emergency Provider Nurse Practitioner Family
DX: J06.9 Acute upper respiratory infection, unspecified (principal); Z20.822 Contact with and (suspected) exposure to COVID-19; J45.909 Unspecified asthma, uncomplicated; K21.9 Gastro-esophageal reflux disease without esophagitis; R01.1 Cardiac murmur, unspecified; Z86.718 Personal history of other venous thrombosis and embolism; Q22.6 Hypoplastic right heart syndrome; G40.909 Epilepsy, unspecified, not intractable, without status epilepticus; Z79.01 Long term (current) use of anticoagulants; Q25.5 Atresia of pulmonary artery; Q22.4 Congenital tricuspid stenosis
CPT/HCPCS: 87426; 87804; 99213; C9803; G0463

== ENCOUNTER 2021-08-01 10:38 | Emergency (ER) | payer OTHER, SELFPAY ==
[2021-08-01 10:58] VITALS: BP 98/74; PULSE 86; RESP 16; TEMP 36.6; O2SAT 98
--- NOTE | 2021-08-01 11:20 | ED.GENADULT ---
HPI - General Adult General Chief complaint: Eye Problems Stated complaint: Right Eye Problem Time Seen by Provider: 08/01/21 11:20 Source: patient Mode of arrival: ambulatory Limitations: no limitations History of Present Illness HPI narrative: 35-year-old male presented for complaint of pain to the right eye for 2 days. He says he cannot open the eye due to the pain. Endorses photophobia. Denies any drainage or vision changes. Denies injury. Pt states he does not know if it feels like something is in the eye. He states this is happened before but does not know what caused it. Denies headache, sinus congestion, ear pain or sore throat. He denies sick contacts. He has not been vaccinated for Covid or flu. Related Data Home Medications Medication Instructions Recorded Confirmed cholecalciferol (vitamin D3) 2,000 unit PO DAILY 06/25/19 05/19/21 [Vitamin D3] levetiracetam [Keppra] 1,000 mg PO BID 06/25/19 05/19/21 rivaroxaban [Xarelto] 20 mg PO DAILY 06/25/19 05/19/21 albuterol sulfate [ProAir HFA] 2 inh INHALATION DIRECTED 08/03/19 05/19/21 fluticasone propionate [Flovent 2 inh INHALATION DIRECTED 12/11/20 05/19/21 Diskus] Allergies Allergy/AdvReac Type Severity Reaction Status Date / Time No Known Allergies Allergy Verified 12/11/20 09:31 Review of Systems Review of Systems: CONSTITUTIONAL: Denies body aches, fever, chills EYES:Endorses redness and pain to right eye, photophobia ENT: Denies rhinorrhea, congestion, sore throat, or otalgia. CARDIOVASCULAR: Denies chest pain, palpitations RESPIRATORY: Denies cough or dyspnea. GASTROINTESTINAL: Denies abdominal pain, nausea, vomiting, or diarrhea. SKIN: Denies rash, itching, or wounds. MUSCULOSKELETAL: Denies back pain, joint pain, or myalgia. NEUROLOGIC: Denies headache, numbness, tingling, or weakness. PSYCH: Denies depression or anxiety. 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 Thrombosis Tricuspid atresia Surgical History Surgical History History of Frank-Taussig shunt History of chest tube placement History of Ed shunt History of vascular surgery Right coronary sinus repair Hx of cardiac cath Family History Family History Other No significant family history Social History Social History Smoking status: Never smoker Second hand tobacco smoke exposure: No Alcohol intake: never Substance use: never Gender identity (if verbalized by the patient): Male Comments At time of signature, I have reviewed and agree with nursing past medical, surgical, social and family history unless otherwise noted. Please see nursing chart for further information. There is no relevant family history pertinent to the presenting complaint Exam Narrative: GENERAL: Well-appearing, well-nourished, and in no acute distress. HEAD: Normocephalic, atraumatic. EYES: right conjunctival injection, mild eye lid swelling/redness, no stye noted EOMI. Lid eversion showed no FB, Fluorescein stain showed linear corneal abrasion ENT: Mucous membranes pink and moist. No rhinorrhea. TMs normal bilaterally. NECK: Normal AROM. Supple. No lymphadenopathy. CHEST: No respiratory distress. Clear to auscultation. HEART: Regular rate and rhythm. No murmur appreciated. Normal peripheral pulses. ABDOMEN: Soft, nontender, nondistended MUSCULOSKELETAL: No bony tenderness. EXTREMITIES: Normal range of motion. SKIN: Warm, dry, no rash. Normal ski
== END 2021-08-01 12:22 | disposition home or self-care (01) ==
PROVIDERS: Emergency Provider Nurse Practitioner Family
DX: S05.01XA Injury of conjunctiva and corneal abrasion without foreign body, right eye, initial encounter (principal); X58.XXXA Exposure to other specified factors, initial encounter; G40.909 Epilepsy, unspecified, not intractable, without status epilepticus; K21.9 Gastro-esophageal reflux disease without esophagitis; R01.1 Cardiac murmur, unspecified; Z86.718 Personal history of other venous thrombosis and embolism; Q22.6 Hypoplastic right heart syndrome; Q25.5 Atresia of pulmonary artery; Q22.4 Congenital tricuspid stenosis; Z79.01 Long term (current) use of anticoagulants; J45.909 Unspecified asthma, uncomplicated
CPT/HCPCS: 99213; A9270; G0463

== ENCOUNTER 2022-05-08 10:32 | Emergency (ER) | payer OTHER, SELFPAY ==
--- NOTE | 2022-05-08 10:50 | ED.URI ---
HPI - URI/Sore Throat General Chief Complaint: Upper Respiratory Infection Stated Complaint: Cough,Sore Throat, Running Nose Time Seen by Provider: 05/08/22 10:52 Source: patient and RN notes reviewed Mode of arrival: ambulatory Limitations: no limitations History of Present Illness HPI Narrative: 36 y/o male with a history of asthma, epilepsy, hypoplastic right heart, presented for c/o headache, body aches, sinus pressure/congestion, cough, fever/chills. Onset 3 days. Patient's mother tested positive for Covid this week. Patient denies shortness of breath, wheezing, nausea, vomiting, diarrhea at this time. He is not taking anything for symptoms. MD elicited complaint: cough Related Data Home Medications Medication Instructions Recorded Confirmed cholecalciferol (vitamin D3) 50 2,000 unit PO DAILY 06/25/19 05/19/21 mcg (2,000 unit) tablet (Vitamin D3) levetiracetam 1,000 mg tablet 1,000 mg PO BID 06/25/19 05/19/21 (Keppra) rivaroxaban 20 mg tablet (Xarelto) 20 mg PO DAILY 06/25/19 05/19/21 albuterol sulfate 90 mcg/actuation 2 inh inhalation DIRECTED 08/03/19 05/19/21 aerosol inhaler (ProAir HFA) fluticasone propionate 100 2 inh inhalation DIRECTED 12/11/20 05/19/21 mcg/actuation blister powder for inhalation (Flovent Diskus) Allergies Allergy/AdvReac Type Severity Reaction Status Date / Time No Known Allergies Allergy Verified 05/08/22 10:35 Review of Systems Review of Systems: ROS per HPI [facility] Past Medical History Medical History ADHD Asthma Epilepsy Sathish type craniosynostosis GERD (gastroesophageal reflux disease) Heart murmur History of DVT (deep vein thrombosis) Hx of seizure disorder Hypoplastic right heart Pulmonary atresia Renal disease Thrombosis Tricuspid atresia Surgical History Surgical History History of Frank-Taussig shunt History of chest tube placement History of Ed shunt History of vascular surgery Right coronary sinus repair Hx of cardiac cath Family History Family History Other No significant family history Social History Social History Smoking status: Never smoker Second hand tobacco smoke exposure: No Alcohol intake: never Substance use: never Gender identity (if verbalized by the patient): Male Exam Narrative: GENERAL: well-appearing, nontoxic EYES: PERRLA, conjunctivae clear ENT: Mucous membranes moist. TMs pearly yo with light reflex bilaterally; no tragal tenderness. Oropharynx without lesions or exudate, no drooling, no hoarseness, no trismus, uvula midline. CHEST: Clear to auscultation, breath sounds equal. No wheezing, rhonchi, rales, or stridor. No respiratory distress, speaks in full sentences. HEART: Regular rate and rhythm. No murmur heard. SKIN: Warm, dry, no rash. NEURO: Alert and oriented x3. PSYCH: Normal mood and affect Course Course Emergency Course: Patient is aware of diagnosis, understands and agrees to treatment plan. Anticipatory guidance given. Patient agrees to follow-up as directed and is aware of reasons to seek care at the emergency department. Portions of this record may have been created with voice recognition software Level of Care: Express Care Visit Vital Signs Vital signs: reviewed MDM - URI/Sore Throat MDM Narrative Medical decision making narrative: COVID and influenza positive. Results reviewed with patient. Advised supportive measures and signs/symptoms to go to the ER. Pt is appropriate for outpt treatment and f/u. Differential Diagnosis Differential diagnosis: Likely upper respiratory infection, sinusitis, viral infection and influenza Discharge Plan Discharge Clinical Impression: COVID-19, Influenza Patient Disposition: Home, Se
[2022-05-08 10:53] VITALS: BP 118/88; PULSE 105; RESP 20; TEMP 38.7; O2SAT 96
== END 2022-05-08 11:06 | disposition home or self-care (01) ==
PROVIDERS: Emergency Provider Nurse Practitioner Family
DX: U07.1 COVID-19 (principal); J10.1 Influenza due to other identified influenza virus with other respiratory manifestations; G40.909 Epilepsy, unspecified, not intractable, without status epilepticus; K21.9 Gastro-esophageal reflux disease without esophagitis; R01.1 Cardiac murmur, unspecified; Z86.718 Personal history of other venous thrombosis and embolism; Q24.8 Other specified congenital malformations of heart; Q25.5 Atresia of pulmonary artery; Q22.4 Congenital tricuspid stenosis; J45.909 Unspecified asthma, uncomplicated; Z79.01 Long term (current) use of anticoagulants
CPT/HCPCS: 87426; 87804; 99213; C9803; G0463

== ENCOUNTER 2022-06-29 16:07 | Emergency (ER) | payer OTHER, SELFPAY ==
--- NOTE | ~2022-06-29 | XR_ITS ---
Portable chest x-ray Comparison: 07/15/2020 Clinical History: Chest pain Findings: Lungs are clear, without focal consolidation or pleural effusion. Cardiomediastinal silho uette is stable, status post presumed CABG. Bones and soft tissues are unremarkable. Impression: Clear lungs. Reviewed, dictated and finalized at [facility]. FORMER Impression: Clear lungs.
[2022-06-29 16:08] VITALS: BP 146/116; PULSE 107; RESP 18; TEMP 36.6; O2SAT 96
--- NOTE | 2022-06-29 16:16 | ED.CHESTPAIN ---
HPI - Chest Pain General Chief Complaint: Chest Pain Stated Complaint: CHEST PAIN, DIAPHORETIC, DIZZY Time Seen by Provider: 06/29/22 16:09 Source: patient Limitations: no limitations History of Present Illness HPI narrative: Patient is 36 years old white male [place] the [place] and had retrosternal pain lasted for maximum 1 minute. He denies any shortness of breath, radiation of pain, nausea, vomiting, fever, chills. Patient reported having similar symptoms numerous of time in the past, extensive cardiac work-up showed nothing significant, Holter monitor showed nothing. History of hypertension, pulmonary embolism on Xarelto, seizure, migraine headache, acid reflux, hypothyroidism. Currently patient is asymptomatic. Related Data Allergies Allergy/AdvReac Type Severity Reaction Status Date / Time No Known Allergies Allergy Verified 06/29/22 16:17 Review of Systems Review of Systems: All systems reviewed & are unremarkable except as noted in HPI and below MDM - Chest Pain MDM Narrative Medical decision making narrative: Patient presents with sudden onset of retrosternal chest pain while sitting lasted for maximum 1 minute, patient arrived by ambulance, patient reports having numerous similar symptoms with extensive cardiac work-up including Holter monitor without specific diagnosis. EKG on arrival showed sinus tachycardia at 107 otherwise no acute abnormalities. Anxiety, depression, stress like symptoms are my concern. Cardiac protocol, chest x-ray ordered and showed no acute abnormalities. Patient has been asymptomatic since arrival to the emergency room until the time of discharge. Patient received 1 mg of Ativan orally, current heart rate is 98 normal sinus rhythm. I believe her stress and anxiety is underlying cause of his sinus tachycardia on arrival to the ED. the pt was discharged to home.the pt,s condition upon discharge was fair,education was provided to the pt in reference to the final impression,discharge study results,treatment,prognosis and need for follow up . Imaging Data Radiologist's impression: Impressions Chest X-Ray 06/29/22 16:37 Impression: Clear lungs. ECG Data EKG #1: Attestation: I personally reviewed and interpreted this ECG as follows: ECG completion date: 06/29/22 ECG completion time: 18:07 Interpretation: Sinus tachycardia at 107 bpm with first-degree heart block, left atrial enlargement, possible anterior myocardial infarction of indeterminate age, inferior myocardial infarction of indeterminate age, abnormal EKG Discharge Plan Discharge Clinical Impression: Atypical chest pain, Anxiety Patient Disposition: Home, Self-Care Condition: Improved Instructions: Antibiotic Form, Chest Pain (ED) Additional Instructions: Return if symptoms are worsening , call your family physician for appointment, take Tylenol as as needed for aches and pain, continue home medications. the pt was discharged to home.the pt,s condition upon discharge was fair,education was provided to the pt in reference to the final impression,discharge study results,treatment,prognosis and need for follow up . Follow-up/Referrals: MD SASCHA,EULA Meraz [Non-Staff] - Quality HEART score for chest pain patients History: slightly suspicious ECG: non specific repolarization disturbance/LBTB/PM Age: < or = to 45 years Risk factors: 1 or 2 risk factors Troponin: < or = to 1x normal limit Heart score: 2
[2022-06-29 16:18] VITALS: PULSE 107; O2SAT 97
--- NOTE | 2022-06-29 16:26 | ECG_ITS ---
Measurements Intervals [place] Rate: 107 P: 55 TN: 213 QRS: 193 QRSD: 117 T: 23 QT: 310 QTc: 414 Interpretive Statements SINUS TACHYCARDIA WITH FIRST DEGREE AV BLOCK POSSIBLE LEFT ATRIAL ENLARGEMENT [-0.1mV P-WAVE IN V1/V2] INDETERMINATE AXIS LOW QRS VOLTAGE IN PRECORDIAL LEADS [QRS DEFLECTION < 1.0 mV IN CHEST LEADS] INCOMPLETE RIGHT BUNDLE BRANCH BLOCK PREVIOUS INFERIOR MYOCARDIAL INFARCTION ABNORMAL ECG NO PREVIOUS ECG AVAILABLE FOR COMPARISON Electronically Signed On 06-30-2022 11:55:54 [employer] by Woo Dozier M.D.
[2022-06-29 17:07] LABS: Basophils Percent Auto 0.2 % (0.2-1.2); Eosinophils Percent Auto 0.3 % (0-4.4); Hematocrit 50.2 % (42.0-52.0); Hemoglobin 17.3 g/dL (14.0-18.0); Immature Granulocyte Absolute 0.02 K/mm3 (0.00-0.031); Immature Granulocyte Percent A 0.2 % (0-0.5); Lymphocytes Percent Auto 9.8 % (18.3-44.2); Mean Corpuscular HGB Conc 34.5 g/dl (32-36); Mean Corpuscular Hemoglobin 31.6 pg (26-34); Mean Corpuscular Volume 91.8 fl (80-100); Mean Platelet Volume 11.1 fl (7.4-10.4); Monocytes Absolute Auto 0.7 K/mm3 (0.1-0.6); Monocytes Percent Auto 6.4 % (2.6-8.5); Neutrophils Absolute Auto 8.5 K/mm3 (1.3-6.7); Neutrophils Percent Auto 83.1 % (45.5-73.1); Platelet Count Result 145 k/mm3 (150-375); Red Blood Count 5.47 M/mm3 (4.6-6.20); Red Cell Distribution Width 12.7 % (11.5-14.5); White Blood Count 10.2 K/mm3 (4.5-10.0)
[2022-06-29 17:15] LABS: Appearance Urine Clear (Clear); Bilirubin Urine Negative (Negative); Blood Urine Negative (Negative); Color Urine Yellow (Yellow); Glucose Urine UA Negative (Negative); Ketones Urine Negative (Negative); Leukocyte Esterase Ur Negative LEU/UL (Negative); Nitrate Urine Negative (Negative); Protein Urine 3+ mg/dL (Negative); Specific Grav Ur >= 1.030 (1.001-1.035); Urobilinogen Urine 0.2 mg/dL (<2.0)
[2022-06-29 17:20] LABS: Add Urine Microscopic? YES; Mucus Urine Rare /lpf; RBC Urine 0-2 /hpf (0-2); WBC Urine 0-3 /hpf
[2022-06-29 17:22] LABS: Partial Thromboplastin Time 29.6 SECONDS (22.3-36.8)
[2022-06-29] MEDS: ASPIRIN 81 MG CHEWABLE TABLET 324 MG PO (17:23)
[2022-06-29] MEDS: LORazepam (*CRX) 0.5 MG TABLET 1 MG PO (17:23)
[2022-06-29 17:29] LABS: Troponin I < 0.012 ng/mL (0.000-0.034)
[2022-06-29 17:40] LABS: Alanine Aminotransferase 34 U/L (6-50); Albumin Level 4.9 g/dL (3.5-5.1); Alkaline Phosphatase 115 U/L (38-126); Anion Gap 8 mmol/L (8-16); Aspartate Amino Transferase 42 U/L (17-59); Bilirubin,Total 2.7 mg/dL (0.2-1.3); Blood Urea Nitrogen 23 mg/dL (9-20); Calcium 9.7 mg/dL (8.4-10.2); Carbon Dioxide 28 mmol/L (22-30); Chloride 100 mmol/L (98-107); Estimated CRCL calculation 97 ml/min; Estimated Glomerular Filt Rate > 60; Glucose 89 mg/dL (65-110); Potassium 4.4 mmol/L (3.4-5.0); Sodium 136 mmol/L (137-145)
[2022-06-29 19:17] VITALS: BP 120/86; PULSE 96; RESP 18; O2SAT 97
== END 2022-06-29 19:19 | disposition home or self-care (01) ==
PROVIDERS: Emergency Provider Emergency Medicine; PCP Nurse Practitioner Family
DX: R07.89 Other chest pain (principal); F41.9 Anxiety disorder, unspecified; I10 Essential (primary) hypertension; E03.9 Hypothyroidism, unspecified; K21.9 Gastro-esophageal reflux disease without esophagitis; Z79.01 Long term (current) use of anticoagulants; Z86.711 Personal history of pulmonary embolism; R00.0 Tachycardia, unspecified; I44.0 Atrioventricular block, first degree; I45.10 Unspecified right bundle-branch block; R94.31 Abnormal electrocardiogram [ECG] [EKG]
CPT/HCPCS: 36415; 71045; 80053; 81001; 84443; 84484; 85025; 85730; 93005; 99283; A9270

== ENCOUNTER 2022-12-24 10:05 | Emergency (ER) | payer OTHER, SELFPAY ==
--- NOTE | ~2022-12-24 | XR_ITS ---
EXAMINATION: XR chest 2V DATE: 12/24/2022 10:39 INDICATION: Cough. TECHNIQUE: Frontal and lateral views of the chest were obtained. COMPARISON: Chest 2 views 06/29/2022 FINDINGS: There are mild right perihilar airspace opacities. No pleural effusion or pneumothorax. Car diomegaly is noted. There are median sternotomy wires and mediastinal surgical clips. IMPRESSION: 1. Mild right perihilar airspace opacities, consistent with mild pulmonary edema versus pneumonia dimitris hayden atelectasis. 2. Cardiomegaly. Reviewed, dictated and finalized at location B. IMPRESSION: 1. Mild right perihilar airspace opacities, consistent with mild pulmonary noah a versus pneumonia versus atelectasis. 2. Cardiomegaly.
[2022-12-24 10:13] VITALS: BP 140/97; PULSE 115; RESP 16; TEMP 37.9; O2SAT 94
--- NOTE | 2022-12-24 10:33 | ED.GENADULT ---
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 He is taking Mucinex without much relief. His mother was recently evaluated in the ED this week with similar symptoms. She was screened for COV and her results were negative. She was diagnosed with COV. He has no associated CP, SOB, orthopnea, lower extremity edema, calf tenderness or otherwise associated symptoms. He denies any additional modifying factors. His Aunt accompanies him here today and she too, has simlar URI symptoms. Related Data Home Medications Medication Instructions Recorded Confirmed cholecalciferol (vitamin D3) 50 2,000 unit PO DAILY 06/25/19 12/24/22 mcg (2,000 unit) tablet (Vitamin D3) levetiracetam 1,000 mg tablet 1,000 mg PO BID 06/25/19 12/24/22 (Keppra) rivaroxaban 20 mg tablet (Xarelto) 20 mg PO DAILY 06/25/19 12/24/22 albuterol sulfate 90 mcg/actuation 2 inh inhalation DIRECTED 08/03/19 12/24/22 aerosol inhaler (ProAir HFA) fluticasone propionate 100 2 inh inhalation DIRECTED 12/11/20 12/24/22 mcg/actuation blister powder for inhalation (Flovent Diskus) atenolol 100 mg tablet 100 mg DIRECTED 12/24/22 12/24/22 cetirizine 10 mg tablet 10 mg DIRECTED 12/24/22 12/24/22 enalapril maleate 10 mg tablet 10 mg DIRECTED 12/24/22 12/24/22 omeprazole 40 mg capsule,delayed 40 mg DIRECTED 12/24/22 12/24/22 release Allergies Allergy/AdvReac Type Severity Reaction Status Date / Time No Known Allergies Allergy Verified 05/08/22 10:35 Review of Systems Constitutional: Comments: chills,low grade fever here today ENT: Comments: nasal congestion Respiratory: Comments: dry cough PMFSH Past Medical History Medical History ADHD Asthma Epilepsy Sathish type craniosynostosis GERD (gastroesophageal reflux disease) Heart murmur History of DVT (deep vein thrombosis) Hx of seizure disorder Hypoplastic right heart Pulmonary atresia Renal disease Thrombosis Tricuspid atresia Surgical History Surgical History History of Frank-Taussig shunt History of chest tube placement History of Ed shunt History of vascular surgery Right coronary sinus repair Hx of cardiac cath Family History Family History Other No significant family history Social History Social History Smoking status: Never smoker Second hand tobacco smoke exposure: No Alcohol intake: never Substance use: never Living arrangements: with family Occupation/Education: unemployed Gender identity (if verbalized by the patient): Male Exam Const: General: healthy appearing, no acute distress and alert Orientation/consciousness: patient oriented x3 Limitations: other limitations (pt has developmental delays, child like disposition, very pleasant) HENMT: Head: normal to inspection Ears: TM abnormal (pt has tympanosclerosis bilaterally, no effusion or erythema) Mouth: Yes Normal oral and palatal mucosa present Teeth and gingiva: dentition normal Throat: posterior oropharynx normal Eyes: Conjunctivae: conjunctivae normal Pupils: Equal, round and reactive pupils present EOM: EOMs intact bilaterally Direct Ophthalmoscopy: no photophobia Neck: Neck: normal visual inspection, no lymphadenopathy and no meningeal signs Resp: Effort & Inspection: normal respiratory effort Auscultation: clear to auscultation bilaterally Cardio: Rate: regular rate Rhythm: regular rhythm
== END 2022-12-24 11:08 | disposition home or self-care (01) ==
PROVIDERS: Emergency Provider Nurse Practitioner Family
DX: J20.9 Acute bronchitis, unspecified (principal); J45.909 Unspecified asthma, uncomplicated; K21.9 Gastro-esophageal reflux disease without esophagitis; R01.1 Cardiac murmur, unspecified; Z86.718 Personal history of other venous thrombosis and embolism; G40.909 Epilepsy, unspecified, not intractable, without status epilepticus; Q25.5 Atresia of pulmonary artery; Q24.8 Other specified congenital malformations of heart; Q22.4 Congenital tricuspid stenosis; Z79.01 Long term (current) use of anticoagulants
CPT/HCPCS: 71046; 99213; G0463

== ENCOUNTER 2023-01-19 15:45 | Emergency (ER) | payer OTHER, SELFPAY ==
[2023-01-19 16:04] VITALS: BP 126/78; PULSE 80; RESP 16; TEMP 35.7; O2SAT 94
--- NOTE | 2023-01-19 16:21 | ED.EYEPROB ---
HPI - Eye Problem General Chief complaint: Eye Problems Stated complaint: Right Eye Irritation/Headache Time Seen by Provider: 01/19/23 16:10 Source: patient Mode of arrival: ambulatory Limitations: no limitations History of Present Illness HPI Narrative: Darien is a 37-year-old male patient presenting to the clinic today with complaints of right eye pain and headache on the right side just behind his eye. He reports that the symptoms started this morning. He denies any known injury. Eye is very painful to open and is watering. Related Data Home Medications Medication Instructions Recorded Confirmed albuterol sulfate 90 mcg/actuation 2 puff inhalation DAILY 01/19/23 01/19/23 aerosol inhaler atenolol 100 mg tablet 100 mg PO DAILY 01/19/23 01/19/23 azithromycin 500 mg tablet mg 01/19/23 cetirizine 10 mg tablet 10 mg PO DAILY 01/19/23 01/19/23 enalapril maleate 10 mg tablet 10 mg PO DAILY 01/19/23 01/19/23 fluticasone propionate 50 1 mcg inhalation DAILY 01/19/23 01/19/23 mcg/actuation blister powder for inhalation (Flovent Diskus) levetiracetam 500 mg tablet 500 mg PO DAILY 01/19/23 01/19/23 omeprazole 40 mg capsule,delayed 40 mg PO DAILY 01/19/23 01/19/23 release prednisone 20 mg tablet mg 01/19/23 prednisone 20 mg tablet mg 01/19/23 rivaroxaban 20 mg tablet (Xarelto) 20 mg PO DAILY 01/19/23 01/19/23 rivaroxaban 20 mg tablet (Xarelto) mg 01/19/23 01/19/23 Allergies Allergy/AdvReac Type Severity Reaction Status Date / Time No Known Allergies Allergy Verified 01/19/23 16:28 Review of Systems Review of Systems: Pertinent positives per HPI. Patient denies any fever, chills, rash, headache, visual changes, dizziness, cough, runny nose, sore throat, shortness of breath, chest pain, palpitations, nausea, vomiting, diarrhea, constipation, abdominal pain, or any urinary issues. PMFSH Comments At the time of my signature, I reviewed and agree with the nursing past medical, surgical, social, and family history. There is no relevant family history pertinent to the patient complaint. Exam Narrative: General: Well-developed, well nourished, in no apparent distress Head: Normocephalic, atraumatic Eyes: Pupils equally round and reactive to light bilaterally, EOM intact, sclera and conjunctive clear, no discharge, lids normal-Wood's lamp exam was performed of the right eye and shows a corneal abrasion at 12 and 1:00, no obvious visualized foreign body Ears: TMs intact and clear, ear canals clear, no drainage, grossly hearing normal. Nose: Nares patent, no discharge, no inflammation, no sinus tenderness. Mouth: Oropharynx without lesions or masses, good dentition, MMM. Neck: Supple, trachea midline, no enlargement of anterior or posterior cervical nodes, no thyroid masses or goiter palpable. Cardio: Regular rate and rhythm, s1 and s2 normal, no murmur appreciated. Resp: Clear to auscultation bilaterally anteriorly and posteriorly, no rhonchi, rales, wheezing or rubs Course Course Emergency Course: Portions of this record may have been created with voice recognition software. Level of Care: Express Care Visit Vital Signs Vital signs: Vital Signs Temperature 35.7 C L 01/19/23 16:04 Pulse Rate 80 01/19/23 16:04 Respiratory Rate 16 01/19/23 16:04 Blood Pressure 126/78 01/19/23 16:04 Pulse Oximetry 94 01/19/23 16:04 Oxygen Delivery Room Air 01/19/23 16:04 Temperature 35.7 C L 01/19/23 16:04 Pulse Rate 80 01/19/23 16:04 Respiratory Rate 16 01/19/23 16:04 Blood Pressure 126/78 01/19/23 16:04 Pulse Oximetry 94 01/19/23 16:04 Oxygen Delivery Room Air 01/19/23 16:04 Vital signs reviewed Procedures Other Procedure Procedure 1: Other Procedure: Topical anesthetic was instilled with good anesthesia using 2gtt of opth anesthetic agent (tetracaine). Fluorescein stain of the right eye was performed with corneal abrasion noted at 12 and 1:00. NO FB,
== END 2023-01-19 16:47 | disposition home or self-care (01) ==
PROVIDERS: Emergency Provider Nurse Practitioner Family
DX: S05.01XA Injury of conjunctiva and corneal abrasion without foreign body, right eye, initial encounter (principal); X58.XXXA Exposure to other specified factors, initial encounter; G40.909 Epilepsy, unspecified, not intractable, without status epilepticus; I10 Essential (primary) hypertension; Z86.711 Personal history of pulmonary embolism; K21.9 Gastro-esophageal reflux disease without esophagitis; E03.9 Hypothyroidism, unspecified
CPT/HCPCS: 99213; A9270; G0463

== ENCOUNTER 2025-01-22 13:45 | Emergency (ER) | payer OTHER, SELFPAY ==
--- OUTSIDE RECORDS SUMMARY | 2018-08-09 06:18 | XMS_ITS | Continuity of Care Document ---
Author Organization [facility] Address [address] [place] [address] Phone Care Team Providers Care Hogshead Wrecker Name Role Phone Jose Angel Chow MD Unavailable Unavailable Allergies, Adverse Reactions, Alerts Substance Reaction Status Criticality No Known Allergies Active No Inform ation Medications Medication Instructions Dosage Effective Dates (start - stop) Status Comments Ritalin 10 mg tablet take 1 Tablet by or al route 2 times every day 10 MG - Active atenolol 50 mg tablet take 1 tablet by oral route every day 50 MG - Active digoxin 125 mcg tablet take 1 tablet by oral route every day 125 MCG - Active enalapril maleate 5 mg tablet take 1 tablet by oral route every day 5 MG - Active Keppra 1,000 mg tablet take 1 tablet by oral route every 12 hours 1000 MG - Active omeprazole 40 mg capsule,delayed release take 1 capsule by oral route every day before a meal 40 MG - Active Coumadin 2.5 mg tablet take 1 tablet by oral route every day - Active Ventolin HFA 90 mcg/actuation aerosol inhaler inhale 2 puff by inhalation route every 4 - 6 hours as needed as needed - Active PRN for SOB Qvar RediHaler 80 mcg/actuation HFA breath activated aerosol inhale 1 puff by inhalation route 2 times every day 80 MCG - Active Qvar 80 mcg/actuation Metered Aerosol oral inhaler inhale 1 puff by inhalation route 2 times every day - Active fluticasone 50 mcg/actuation nasal spray,suspension inhale 2 spray by intranasal route every day in each nostril 100 MCG - Active Procedures Procedure Date OFFICE/OUTPATIENT VISIT, EST PREV VISIT, EST, AGE 18-39 OFFICE/OUTPATIENT VISIT, EST OFFICE/OUTPATIENT VISIT, EST OFFICE/OUTPATIENT VISIT, EST OFFICE/OUTPATIENT VISIT, EST PREV VISIT, EST, AGE 18-39 OFFICE/OUTPATIENT VISIT, EST OFFICE/OUTPATIENT VISIT, EST OFFICE/OUTPATIENT VISIT, EST OFFICE/OUTPATIENT VISIT, EST OFFICE/OUTPATIENT VISIT, EST PREV VISIT, EST, AGE 18-39 OFFICE/OUTPATIENT VISIT, EST OFFICE/OUTPATIENT VISIT, EST OFFICE/OUTPATIENT VISIT, EST PREV VISIT, EST, AGE 18-39 OFFICE/OUTPATIENT VISIT, EST OFFICE/OUTPATIENT VISIT, EST OFFICE/OUTPATIENT VISIT, EST OFFICE/OUTPATIENT VISIT, EST OFFICE/OUTPATIENT VISIT, EST PREV VISIT, NEW, AGE 18-39 Advance Directives Directive Yes / No Effective Date File Name No Information Encounters Encounter Description Practice Location Reason(s) For Visit Diagnoses Date Provider Providers Copied on Encounter [facility], [address], [address], tel:[phone] [facility] No Information 201 9 Geraldo Walter. [address], [place], [place], [address] , [place]. tel:[phone] OFFICE/OUTPA TIENT VISIT, EST [facility], [address], [place], [address], tel:[phone] [facility] Medicine ADD (chief complaint)li ver1 (chief complaint)pr oteinuria1 (chief complaint)co nstipation1 (chief complaint)as thma1 (chief complaint) AsthmaConstipatio nAttention and concentration deficitLiver diseaseProteinuri aSecondary polycythemia 8 9 Geraldo Walter. [address], [place], [place], [address] , [place]. tel:[phone] [facility], [address], [place], [place], [address], [place] tel:[phone] [facility] No Information 3 8 Geraldo Walter. [address], [place], [place], [address] , [place]. tel:[phone] [facility], [address], [place], [place], [address], [place] tel:[phone] [facility] No Information 8 Geraldo Sigala [address], [place], [place], [address] , [place]. [phone] PREV VISIT, EST, AGE 18-39 [facility], [address], [place], [place], [address], [place] tel:[phone] [facility] Physical1 (chief complaint) Encntr for general adult medical exam w/o abnormal findings 8 Geraldo Sigala [address], [place], [place], [address] , [place]. [phone] Referring Provider: Alycia Ramirez [address], [place], [place], [address]. tel:[phone] OFFICE/OUTPA TIENT VISIT, EST [facility], [address], [place], [place], [address], [place] tel:[phone] [facility] constipatoin 1 (chief complaint)as thma1 (chief complaint)AD D (chief complaint) AsthmaConstipatio nGERD w/o esophagitisEpilep syAttention and concentration deficit 0 8 Geraldo Sigala [address], [place], [place], [address] , [place]. [phone] Referring Provider: Jose Angel Chow, [address], [place], [place], [address]. tel:[phone] OFFICE/OUTPA TIENT VISIT, EST [facility], [address], [place], [place], [address], [place] tel:[phone] [facility] ADD (chief complaint)as thma1 (chief complaint) Attention and concentration deficitAsthma Fe 8 Geraldo Walter. [address], [place], [place], [address] , [place]. tel:[phone] OFFICE/OUTPA TIENT VISIT, EST [facility], [address], [place], [place], [address], [place] tel:[phone] [facility] ADD (chief complaint) Attention and concentration deficit 7 Geraldo Walter. [address], [place], [place], [address] , [place]. tel:[phone] Referring Provider: JoseA ngel Chow [address], [place], [place], [address]. tel:[phone] OFFICE/OUTPA TIENT VISIT, EST [facility], [address], [place], [place], [address], [place] tel:[phone] [facility] platelet1 (chief complaint)po lycythermia (chief complaint)li ver1 (chief complaint)pr oteinuria1 (chief complaint)AD D (chief complaint) ThrombocytopeniaS econdary polycythemiaDisor roxana of bilirubin metabolism, unspecifiedConsti pation 7 Geraldo Walter. [address], [place], [place], [address] , [place]. tel:[phone] Referring Provider: Alycia [address], [place], [place], [address]. tel:[phone] PREV VISIT, EST, AGE 18-39 [facility], [address], [place], [place], [address], [place] tel:[phone] [facility] PHysical (chief complaint) Encntr for general adult medical exam w/o abnormal findings 7 Geraldo Walter. [address], [place], [address] , [place]. tel:[phone] Referring Provider: Alycia Ramirez [address], [place], [place], [address]. tel:[phone] OFFICE/OUTPA TIENT VISIT, [facility], [address], [place], [place], [address], [place] tel:[phone] [facility] chest pain1 (chief complaint)co nstipation1 (chief complaint)sl eep apnea1 (chief complaint) Chest painCongenital tricuspid atresiaConstipati onSleep apnea 7 Geraldo Sigala [address], [place], [place], [address] , [place]. tel:[phone] Referring Provider: Alycia Ramirez [address], [place], [place], [address]. tel:[phone] OFFICE/OUTPA TIENT VISIT, [facility], [address], [place], [address], [place] tel:[phone] [facility] asthma1 (chief complaint)fo rm (chief complaint) AsthmaLearning disability 7 Geraldo Sigala [address], [place], [place], [address] , [place]. tel:[phone] Referring Provider: Alycia Ramirez [address], [place], [place], [address]. tel:[phone] OFFICE/OUTPA TIENT VISIT, [facility], [address], [place], [place], [address], [place] tel:[phone] [facility] asthma1 (chief complaint)bi lirubin (chief complaint)sl eep apnea1 (chief complaint)co nstipation1 (chief complaint) Disorder of bilirubin metabolism, unspecifiedAttent ion and concentration deficitSleep apneaSecondary polycythemia 7 Geraldo Walter. [address], [place], [place], [address] , [place]. tel:[phone] Referring Provider: Alycia Ramirez [address], [place], [place], [address]. tel:[phone] OFFICE/OUTPA TIENT VISIT, EST [facility], [address], [place], [address], [place] tel:[phone] [facility] thyroid (chief complaint)bi lirubin (chief complaint) HypothyroidismDis order of bilirubin metabolism, unspecified 6 Geradlo Walter. [address], [place], [address] , [place]. tel:[phone] Referring Provider: Alycai [address], [place], [place], [address]. tel:[phone] OFFICE/OUTPA TIENT VISIT, EST [facility], [address], [place], [place], [address], [place] tel:[phone] [facility] ADD (chief complaint)po lycythermia1 (chief complaint)hy pothyroidism 1 (chief complaint)bi li (chief complaint) ProteinuriaDisord er of bilirubin metabolism, unspecifiedHypoth yroidismAttention and concentration deficit 6 Geraldo Walter. [address], [place], [place], [address] , [place]. tel:[phone] Referring Provider: Alycia Ramirez [address], [place], [place], [address]. tel:[phone] PREV VISIT, EST, AGE 18-39 [facility], [address], [place], [place], [address], [place] [phone] [facility] PHysical (chief complaint) Encntr for general adult medical exam w/o abnormal findings 6 Geraldo Walter. [address], [place], [address] , [place]. tel:[phone] Referring Provider: Alycia Ramirez [address], [place], [place], [address]. tel:[phone] OFFICE/OUTPA TIENT VISIT, [facility], [address], [place], [place], [address], [place] tel:[phone] [facility] ADD (chief complaint)as thma1 (chief complaint)co nstipation (chief complaint)po lycythermia (chief complaint) Other asthmaConstipatio nAttention deficitSecondary polycythemia 6 Geraldo Walter. [address], [place], [place], [address] , [place]. tel:[phone] Referring Provider: Alycia Ramirez [facility] [address], [place], [place], [address]. tel:[phone] OFFICE/OUTPA TIENT VISIT, [facility], [address], [place], [place], [address], [place] [phone] [facility] ADD (chief complaint)dr jewels branham (chief complaint)GE RD (chief complaint)as thma (chief complaint) Attention deficit disorder of childhood without mention of hyperactivityCons tipation, unspecifiedEsopha geal refluxOther hemoglobinopathie s 5 Geraldo Walter. [address], [place], [place], [address] , [place]. tel:[phone] Referring Provider: Alycia [address], [place], [address]. tel:[phone] OFFICE/OUTPA TIENT VISIT, [facility], [address], [place], [address], [place] tel:[phone] [facility] hemoglobin (chief complaint)HL P (chief complaint)pr oteinuria (chief complaint)GE RD (chief complaint) Other hemoglobinopathie sOther and unspecified hyperlipidemiaGER DProteinuria 5 Geraldo Sigala [address], [place], [place], [address] , [place]. tel:[phone] Referring Provider: Alycia Ramirez [address], [place], [place], [address]. tel:[phone] PREV VISIT, EST, AGE 18-39 [facility], [address], [place], [address], [place] tel:[phone] [facility] Physical (chief complaint) Routine Medical ExamRoutine Medical Exam Aug- 5 Geraldo Walter. [address], [place], [place], [address] , [place]. [phone] Referring Provider: Jose Angel Chow, [address], [place], [place], [address]. tel:[phone] OFFICE/OUTPA TIENT VISIT, EST [facility], [address], [place], [place], [address], [place] tel:[phone] [facility] Medicine GERD (chief complaint)AD D (chief complaint)co nstipation (chief complaint)as thma (chief complaint) Dietary surveillance and counselingGERDAtt ention deficit disorder of childhood without mention of hyperactivityAlle rgic rhinitis, cause unspecifiedConsti pation, unspecified 4 Geraldo Walter. [address], [place], [place], [address] , [place]. [phone] Referring Provider: Alycia Ramirez [address], [place], [place], [address]. tel:[phone] OFFICE/OUTPA TIENT VISIT, EST [facility], [address], [place], [address], [place] tel:[phone] [facility] Medicine Hep A (chief complaint)AD D (chief complaint)he art failure (chief complaint)co nstipation (chief complaint) Dietary surveillance and counselingViral hepatitis a without mention of hepatic comaAttention deficit disorder of childhood without mention of hyperactivityCons tipation, unspecified 4 Geraldo Walter. [address], [place], [address] , [place]. tel:[phone] Referring Provider: Jose Angel Chow [address], [place], [place], [address]. tel:[phone] OFFICE/OUTPA TIENT VISIT, [facility], [address], [place], [place], [address], [place] tel:[phone] [facility] ADD (chief complaint)as thma (chief complaint)dr jewels branham (chief complaint) Dietary surveillance and counselingAttenti on deficit disorder of childhood without mention of hyperactivityAsth maAllergic rhinitis, cause unspecifiedContac t dermatitis and other eczema due to other specified agents 4 Geraldo Walter. [address], [place], [place], [address] , [place]. tel:[phone] Referring Provider: Alycia Ramirez [address] [facility] [address], [place], [place], [address]. tel:[phone] OFFICE/OUTPA TIENT VISIT, [facility], [address], [place], [place], [address], [place] tel:[phone] [facility] ADD (chief complaint)re nal issue (chief complaint) Dietary surveillance and counselingProtein uriaOther specified cystic kidney diseaseAttention deficit disorder of childhood without mention of hyperactivity 3 Geraldo Sigala [address], [place], [place], [address] , [place]. tel:[phone] Referring Provider: Alycia [address], [place], [place], [address]. tel:[phone] OFFICE/OUTPA TIENT VISIT, [facility], [address], [place], [place], [address], [place] tel:[phone] [facility] proteinuria (chief complaint)HL P (chief complaint) Dietary surveillance and counselingProtein uriaOther and unspecified hyperlipidemiaOth er specified cystic kidney disease 3 Geraldo Sigala [address], [place], [place], [address] , [place]. tel:[phone] PREV VISIT, NEW, AGE 18-39 [facility], [address], [place], [place], [address], [place] tel:[phone] [facility] Physical (chief complaint) Dietary surveillance and counselingRoutine Medical ExamRoutine Medical Exam 3 Geraldo Sigala [address], [place], [place], [address] , [place]. tel:[phone] Family History Family Member Type Diagnosis Age At Onset Mother Problem (finding) Hypertension Father Problem (finding) Unknown Disease Father Problem (finding) Other Payers Payer name Insurance type Covered alliance party ID Authoriza tion(s) No Information Social History Type Description Quantity Date Captured Comments Sex Male Smoking Status No Information Chief Complaint And Reason For Visit No Information Plan Of Treatment Date Type Action Status Goal Tdap. Due on due Goal Td vaccine. Due on due Goal Influenza vaccine. Due on due Goal Depression screening. Due on due Goal Special diet education compl eted Goal Influenza vaccine. Due on due Goal Td vaccine. Due on 18 due Goal Tdap. Due on due Goal Depression screening. Due on due Goal Special diet education compl eted Goal Influenza vaccine. Due on due Goal Td vaccine. Due on 18 due Goal Tdap. Due on due Goal Depression screening. Due on due Goal Special diet education compl eted Goal Depression screening. Due on due Goal Tdap. Due on due Goal Td vaccine. Due on 18 due Goal Td vaccine. Due on 17 due Goal Depression screening. Due on due Goal Tdap. Due on due Goal Depression screening. Due on due Goal Tdap. Due on due Goal Td vaccine. Due on due Goal Td vaccine. Due on due Goal Tdap. Due on due Goal Depression screening. Due on due Goal Depression screening. Due on due Goal Tdap. Due on due Goal Td vaccine. Due on due Goal Td vaccine. Due on due Goal Depression screening. Due on due Goal Tdap. Due on due Goal Depression screening. Due on due Goal Tdap. Due on due Goal Td vaccine. Due on due Goal Depression screening. Due on due Goal Td vaccine. Due on due Goal Tdap. Due on due Goal Tdap. Due on due Goal Td vaccine. Due on due Goal Depression screening. Due on due Goal Tdap. Due on due Goal Depression screening. Due on due Goal Td vaccine. Due on due Goal Td vaccine. Due on due Goal Tdap. Due on due Goal Depression screening. Due on due Goal Depression screening. Due on due Goal Td vaccine. Due on due Sep-01-2015 Goal Tdap. Due on due Referral Ordered: US THYROID ordered Referral Ordered: Gastroenterology (related to Disorder of bilirubin metabolism, unspecified) ordered Referral Ordered: Referrals: Gastroenterology. Evaluate and treat ordered Referral Ordered: OPERATIVE UPPER GI ENDOSCOPY ordered Referral Ordered: Hematology (related to Other hemoglobinopathies) ordered Referral Ordered: Dwayne Dimas (related to Other hemoglobinopathies) ordered Referral Referred To: Dwayne Dimas [address] [place], [phone] Ordered: Referrals: Dwayne Dimas. Evaluate and treat ordered Referral Ordered: Referrals: Hematology. 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 ordered Referral Ordered: US KIDNEY ordered History Of Present Illness Encounter Date Complaint History Of Prese nt Illness constipation1 Pt has chronic c onstipation Pt had benign colonoscopy Pt takes lactulose and doing ok Pt has daily BM. Pt denies any blood proteinuria1 Pt sees nephrolo gy for proteuria pt has normal UO. ADD Pt has ADD Pt ta kes ritalin. Pt doing ok. Pt feels more focused liver1 pt has cirrhosis vs fatty lier. Pt has chronic elevate bili Pt is seeing GI at [facility]. Pt is not very good historian. Pt not sure when he seen him last. Pt denies any abd pain asthma1 Pt uses qvar eli ly. pt rarely uses albuterol. Pt denies any acute sob Physical1 Pt needs annual physical. 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 polycythemia. proteinuria. 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 Pt is doing stable now. Pt denies any acute issue constipatoin1 Pt has chronic c onstipation. Pt had benign colonoscopy. Pt sees GI. Pt has chronic GERD Pt takes zantac and doing ok. Pt takes lactulose and constipation is ok. Pt denies any abd pain asthma1 Pt has asthma an d allergy Pt takes flonase and also qvar and albuterol. Pt states that he uses albuterol 1-2 per week. pt denies any acute sob ADD Pt has chronic d evelopmental delay with learning disability and attention deficit. pt takes ritalin and doing ok. Pt has mild mental retardation asthma1 Pt has asthma. P t has been using aerospan and he rarely uses venotlin when he uses aerospan. However. aerospan is in back order so he needs to cchange to different inhaler. We tried qvar but hiss insurance did not cover it. ADD Pt has ADD, inat tentive type .Pt takes ritalin and doing ok. pt feels more focused. Pt denies any appetie loss ADD pt has ADD Pt white s chronic developmental delay. pt takes ritalin for many years to keep him alert. Pt doing ok. Pt denies any appetiet loss or abd pain ADD Pt has ADD Pt white s difficulty with focus and concentration Pt has chronic learning disaiblyt. Pt also has chornic constipation. Pt uses lactulose proteinuria1 Pt has chornic p roteinuria Pt sees neprhology. Pt denies any UTI liver1 Pt has liver cir rhosis and also high bili. Pt sees liver specialist. Pt was told he does not have hep C. Pt denies any abd pain Pt does not drink alcohol or use tylenol polycythermia Pt has chronic p olycythermia. pt sees hematology. Pt was told that it is due to chronic deoxygen state from his cardiac condition. Pt denies any chest pain or sob platelet1 Pt has low plate let. Pt denies any bruising or bleeding PHysical PT needs annual physical. Pt has chronic constipation. Pt takes lactulose. Pt has GERD and he takes zantac and doing ok. Pt has proteinuria and he sees Dr. Lowry. 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 Pt sees hematology and also cardiology. Pt sees Dr. Sams for seizure. Pt has ADD Pt doign ok. Pt denie any seizure Pt denies any other complaints sleep apnea1 Pt has sleep clinical tech ea. CPAP soon. Pt feels fatigue and he dose snore constipation1 Pt has chronic c onsipation. Pt uses lactulose Pt doing ok Pt had benign colonosocpy 2014 chest pain1 pt was eating di nner two weeks ago and he felt sudden onset of chest pain, midsternal. Pt felt mildly sweaty. Pt deneis any radiation of pain to left arm or neck area. Pt denies any dizziness. Pt states that he had presyncope episodes during the chest pain but never passed out. Pt was transferred to ER via ambulance. Pt was admitted to [facility]. Pt had negative cardiac enzymes in the hospital and he was released home the next day. Pt denies any recurrent chest pain or any similar episodes. Pt states that he had simiar episodes 4-5 yers ago. Pt denies any exertional chest pain. form Pt needs transpo rtation form completed. Pt has chronic learning disorder since childhood. Pt unable to drive. His mom unable to drive him to physician office asthma1 Pt has been usin [employer] and is doing ok Pt rarely uses venotlin. Pt denies any acute SOB constipation1 Pt has chronic c onstipation. Pt uses lactulose Pt doing ok Pt has BM 1-2 per week on lacutose. sleep apnea1 Pt has sleep clinical tech ea. Pt will go back to lab for CPAP. Pt feels fatigue and also he does snore bilirubin Pt has mildly hi gh direct bilirubin. Pt told me he is seeing liver specialist at [facility] for fatty liver. asthma1 Pt has asthma. P t was on qvar and venotlin. Pt needs venotlin once every two weeks Insurance no longer cover qvar. Pt denies any acute sob bilirubin Pt has high bili payne. Pt denies any abd pain or any jaundice. Pt has not seen GI yet. thyroid Pt has normal TS H but elevated TPO. Pt denies any dysphagia ADD Pt has ADD Pt ta kes ritalin and doing ok Pt feels more focused. Pt denies any abd apin or any appetite loss polycythermia1 Pt has polycythe rmia. pt sees hematology. hypothyroidism1 Pt has mildly lo w thyroid on recent lab. Pt denies anyf atigue bili Pt has high bili rubrin. Pt does not have any jaundice. Pt has chronic constipation and he takes lactuolose. Pt doing ok. Pt also has GERD. pt takes zantac PHysical Pt needs annual physical. Pt has ADD and he takes ritalin and doing ok. Pt has dry skin and he uses topical setroid and doing ok. Pt also uses qvar for asthma. Pt rarely uses ventolin anymore. Pt denies any acute SOB. Pt also had EGD done recently which showed refluex and he is on omeprazole now and helping Pt is off zantac. Pt denies any other complaints ADD Pt has ADD. Pt t akes ritalin and doing ok. Pt denies any abd pain or any appetite loss asthma1 Pt has intermitt ent SOB Pt uses proair about 1-2 per day. Pt does not smoke constipation Additional infor mation: Pt has chronic constipation. Pt had benign colonoscopy recently. Pt uses lactulose and working ok. polycythermia Pt has polycythe rmia. Pt seen hematology and was told it is chronic and due to underlying cardiac condition GERD Additional infor mation:Pt takes zantac and doing ok pt denies any abd pain or gERd symptoms. asthma The initial visi t date was 01/23/2015. Additional information: Pt uses albuterol 1-2 per week. Pt denies any regular sOB or coughing. ADD Pt takes ritalin and is doing ok. Pt denies any abd pain or any appetite loss. Pt feels better mood and better concentration dry skin Pt has dry skin and he uses steroid topical PRN and doing ok Instructions Date Instruction Additional Infor mation Special diet education Related t o Body mass index (BMI) 28.0-28.9, adult Increase physical activity Relat ed to Asthma Weight management Related to Ast hma Increase activity. Related to En cntr for general adult medical exam w/o abnormal findings Special diet education Related t o Body mass index (BMI) 26.0-26.9, adult Special diet education Related t o Body mass index (BMI) 27.0-27.9, adult Weight management Related to Ast hma Prescribed Activity and Exercise Education Related to Dietary Surveillance and Counseling Prescribed Diet Education/Lifestyle Education Regarding Diet Related to Dietary Surveillance and Counseling Increase physical activity Relat ed to Attention and concentration deficit Weight management Related to Att ention and concentration deficit Increase physical activity Relat ed to Attention and concentration deficit Weight management Related to Att ention and concentration deficit Prescribed Activity and Exercise Education Related to Dietary Surveillance and Counseling Prescribed Diet Education/Lifestyle Education Regarding Diet Related to Dietary Surveillance and Counseling Increase physical activity Relat ed to Thrombocytopenia Weight management Related to Thr ombocytopenia Prescribed Diet Education/Lifestyle Education Regarding Diet Related to Dietary Surveillance and Counseling Prescribed Activity and Exercise Education Related to Dietary Surveillance and Counseling Prescribed Diet Education/Lifestyle Education Regarding Diet Related to Dietary Surveillance and Counseling Prescribed Activity and Exercise Education Related to Dietary Surveillance and Counseling Prescribed Activity and Exercise Education Related to Dietary Surveillance and Counseling Prescribed Diet Education/Lifestyle Education Regarding Diet Related to Dietary Surveillance and Counseling Prescribed Activity and Exercise Education Related to Dietary Surveillance and Counseling Prescribed Diet Education/Lifestyle Education Regarding Diet Related to Dietary Surveillance and Counseling Dietary counseling Related to Di etary surveillance counseling Decrease caloric intake Related to Dietary surveillance counseling Dietary counseling Related to Di etary surveillance counseling Decrease caloric intake Related to Dietary surveillance counseling Dietary counseling Related to Di etary surveillance counseling Decrease caloric intake Related to Dietary surveillance counseling Dietary counseling Related to Di etary surveillance counseling Decrease caloric intake Related to Dietary surveillance counseling Dietary counseling Related to Di etary surveillance counseling Decrease caloric intake Related to Dietary surveillance counseling Decrease caloric intake Related to Dietary surveillance counseling Dietary counseling Related to Di etary surveillance counseling Assessments Type Assessment Date No Information
--- OUTSIDE RECORDS SUMMARY | 2018-08-09 06:18 | XMS_ITS | Continuity of Care Document ---
Author Organization [facility] Address [address] [place] [address] Phone Care Team Providers Care Newswriter Name Role Phone Jose Angel Chow MD [...] Diagnoses Date Provider Providers Copied on Encounter [facility], [address], [place], [address], tel:[phone] [facility] No Information 201 9 Geraldo Walter. [address], [place], [place], [address] , [place]. tel:[phone] OFFICE/OUTPA TIENT VISIT, EST [facility], [address], [place], [address], tel:[phone] [facility] Medicine ADD (chief complaint)li ver1 (chief complaint)pr oteinuria1 (chief complaint)co nstipation1 (chief complaint)as thma1 (chief complaint) AsthmaConstipatio nAttention and concentration deficitLiver diseaseProteinuri aSecondary polycythemia 8 9 Geraldo Walter. [address], [place], [place], [address] , [place]. tel:[phone] [facility], [address], [place], [place], [address], [place] tel:[phone] [facility] No Information 3 8 Geraldo Walter. [address], [place], [place], [address] , [place]. tel:[phone] [facility], [address], [place], [place], [address], [place] tel:[phone] [facility] No Information 8 Geraldo Sigala [address], [place], [place], [address] , [place]. [phone] PREV VISIT, EST, AGE 18-39 [facility], [address], [place], [place], [address], [place] tel:[phone] [facility] Physical1 (chief complaint) Encntr for general adult medical exam w/o abnormal findings 8 Geraldo Sigala [address], [place], [place], [address] , [place]. [phone] Referring Provider: Alycia Ramirez [address], [place], [place], [address]. tel:[phone] OFFICE/OUTPA TIENT VISIT, EST [facility], [address], [place], [place], [address], [place] tel:[phone] [facility] constipatoin 1 (chief complaint)as thma1 (chief complaint)AD D (chief complaint) AsthmaConstipatio nGERD w/o esophagitisEpilep syAttention and concentration deficit 0 8 Geraldo Sigala [address], [place], [place], [address] , [place]. [phone] Referring Provider: Jose Angel Chow, [address], [place], [place], [address]. tel:[phone] OFFICE/OUTPA TIENT VISIT, EST [facility], [address], [place], [place], [address], [place] tel:[phone] [facility] ADD (chief complaint)as thma1 (chief complaint) Attention and concentration deficitAsthma Fe 8 Geraldo Walter. [address], [place], [address] , [place]. tel:[phone] OFFICE/OUTPA TIENT VISIT, EST [facility], [address], [place], [place], [address], [place] tel:[phone] [facility] ADD (chief complaint) Attention and concentration deficit 7 Geraldo Walter. [address], [place], [place], [address] , [place]. tel:[phone] Referring Provider: Jose Angel Chow [address], [place], [place], [address]. tel:[phone] OFFICE/OUTPA TIENT VISIT, EST [facility], [address], [place], [address], [place] tel:[phone] [facility] platelet1 (chief complaint)po lycythermia (chief complaint)li ver1 (chief complaint)pr oteinuria1 (chief complaint)AD D (chief complaint) ThrombocytopeniaS econdary polycythemiaDisor roxana of bilirubin metabolism, unspecifiedConsti pation 7 Geraldo Walter. [address], [place], [place], [address] , [place]. tel:[phone] Referring Provider: Alycia Raimrez [address], [place], [place], [address]. tel:[phone] PREV VISIT, EST, AGE 18-39 [facility], [address], [place], [place], [address], [place] tel:[phone] [facility] PHysical (chief complaint) Encntr for general adult medical exam w/o abnormal findings 7 Geraldo Walter. [address], [place], [place], [address] , [place]. tel:[phone] Referring Provider: Alycia Ramirez [address], [place], [place], [address]. tel:[phone] OFFICE/OUTPA TIENT VISIT, [facility], [address], [place], [place], [address], [place] tel:[phone] [facility] chest pain1 (chief complaint)co nstipation1 (chief complaint)sl eep apnea1 (chief complaint) Chest painCongenital tricuspid atresiaConstipati onSleep apnea 7 Geraldo Sigala [address], [place], [place], [address] , [place]. tel:[phone] Referring Provider: Alycia Ramirez [address], [place], [address]. tel:[phone] OFFICE/OUTPA TIENT VISIT, [facility], [address], [place], [place], [address], [place] tel:[phone] [facility] asthma1 (chief complaint)fo rm (chief complaint) AsthmaLearning disability 7 Geraldo Sigala [address], [place], [place], [address] , [place]. tel:[phone] Referring Provider: Alycia Ramirez [address], [place], [place], [address]. tel:[phone] OFFICE/OUTPA TIENT VISIT, [facility], [address], [place], [place], [address], [place] tel:[phone] [facility] asthma1 (chief complaint)bi lirubin (chief complaint)sl eep apnea1 (chief complaint)co nstipation1 (chief complaint) Disorder of bilirubin metabolism, unspecifiedAttent ion and concentration deficitSleep apneaSecondary polycythemia 7 Geraldo Walter. [address], [place], [place], [address] , [place]. tel:[phone] Referring Provider: Alycia Ramirez [address], [place], [place], [address]. tel:[phone] OFFICE/OUTPA TIENT VISIT, EST [facility], [address], [place], [address], [place] tel:[phone] [facility] thyroid (chief complaint)bi lirubin (chief complaint) HypothyroidismDis order of bilirubin metabolism, unspecified 6 Geraldo Walter. [address], [place], [address] , [place]. tel:[phone] Referring Provider: Alycia Ramirez [address], [place], [place], [address]. tel:[phone] OFFICE/OUTPA TIENT VISIT, EST [facility], [address], [place], [place], [address], [place] tel:[phone] [facility] ADD (chief complaint)po lycythermia1 (chief complaint)hy pothyroidism 1 (chief complaint)bi li (chief complaint) ProteinuriaDisord er of bilirubin metabolism, unspecifiedHypoth yroidismAttention and concentration deficit 6 Geraldo Walter. [address], [place], [place], [address] , [place]. tel:[phone] Referring Provider: Alycia Ramirez [address], [place], [address]. tel:[phone] PREV VISIT, EST, AGE 18-39 [facility], [address], [place], [place], [address], [place] [phone] [facility] PHysical (chief complaint) Encntr for general adult medical exam w/o abnormal findings 6 Geraldo Walter. [address], [place], [address] , [place]. tel:[phone] Referring Provider: Alycia Ramirez [address], [place], [place], [address]. tel:[phone] OFFICE/OUTPA TIENT VISIT, [facility], [address], [place], [place], [address], [place] tel:[phone] [facility] ADD (chief complaint)as thma1 (chief complaint)co nstipation (chief complaint)po lycythermia (chief complaint) Other asthmaConstipatio nAttention deficitSecondary polycythemia 6 Geraldo Walter. [address], [place], [address] , [place]. tel:[phone] Referring Provider: Alycia Ramirez [facility] [address], [place], [place], [address]. tel:[phone] OFFICE/OUTPA TIENT VISIT, [facility], [address], [place], [place], [address], [place] [phone] [facility] ADD (chief complaint)dr jewesl branham (chief complaint)GE RD (chief complaint)as thma (chief complaint) Attention deficit disorder of childhood without mention of hyperactivityCons tipation, unspecifiedEsopha geal refluxOther hemoglobinopathie s 5 Geraldo Walter. [address], [place], [place], [address] , [place]. tel:[phone] Referring Provider: Alycia Ramirez [address], [place], [place], [address]. tel:[phone] OFFICE/OUTPA TIENT VISIT, [facility], [address], [place], [place], [address], [place] tel:[phone] [facility] hemoglobin (chief complaint)HL P (chief complaint)pr oteinuria (chief complaint)GE RD (chief complaint) Other hemoglobinopathie sOther and unspecified hyperlipidemiaGER DProteinuria 5 Geraldo Sigala [address], [place], [place], [address] , [place]. tel:[phone] Referring Provider: Alycia Ramirez [address], [place], [place], [address]. tel:[phone] PREV VISIT, EST, AGE 18-39 [facility], [address], [place], [place], [address], [place] tel:[phone] [facility] Physical (chief complaint) Routine Medical ExamRoutine Medical Exam Aug- 5 Geraldo Walter. [address], [place], [place], [address] , [place]. [phone] Referring Provider: Jose Angel Chow, [address], [place], [place], [address]. tel:[phone] OFFICE/OUTPA TIENT VISIT, EST [facility], [address], [place], [place], [address], [place] tel:[phone] [facility] Medicine GERD (chief complaint)AD D (chief complaint)co nstipation (chief complaint)as thma (chief complaint) Dietary surveillance and counselingGERDAtt ention deficit disorder of childhood without mention of hyperactivityAlle rgic rhinitis, cause unspecifiedConsti pation, unspecified 4 Geraldo Walter. [address], [place], [address] , [place]. [phone] Referring Provider: Alycia Ramirez [address], [place], [place], [address]. tel:[phone] OFFICE/OUTPA TIENT VISIT, EST [facility], [address], [place], [place], [address], [place] tel:[phone] [facility] Medicine Hep A (chief complaint)AD D (chief complaint)he art failure (chief complaint)co nstipation (chief complaint) Dietary surveillance and counselingViral hepatitis a without mention of hepatic comaAttention deficit disorder of childhood without mention of hyperactivityCons tipation, unspecified 4 Geraldo Walter. [address], [place], [address] , [place]. tel:[phone] Referring Provider: Jose Angel Chow [address], [place], [place], [address]. tel:[phone] OFFICE/OUTPA TIENT VISIT, [facility], [address], [place], [place], [address], [place] tel:[phone] [facility] ADD (chief complaint)as thma (chief complaint)dr jewels branham (chief complaint) Dietary surveillance and counselingAttenti on deficit disorder of childhood without mention of hyperactivityAsth maAllergic rhinitis, cause unspecifiedContac t dermatitis and other eczema due to other specified agents 4 Geraldo Walter. [address], [place], [place], [address] , [place]. tel:[phone] Referring Provider: Alycia Ramirez [address] [facility] [address], [place], [place], [address]. tel:[phone] OFFICE/OUTPA TIENT VISIT, [facility], [address], [place], [place], [address], [place] tel:[phone] [facility] ADD (chief complaint)re nal issue (chief complaint) Dietary surveillance and counselingProtein uriaOther specified cystic kidney diseaseAttention deficit disorder of childhood without mention of hyperactivity 3 Geraldo Sigala [address], [place], [place], [address] , [place]. tel:[phone] Referring Provider: Alycia Ramirez [address], [place], [place], [address]. tel:[phone] OFFICE/OUTPA TIENT VISIT, [facility], [address], [place], [place], [address], [place] tel:[phone] [facility] proteinuria (chief complaint)HL P (chief complaint) Dietary surveillance and counselingProtein uriaOther and unspecified hyperlipidemiaOth er specified cystic kidney disease 3 Geraldo Sigala [address], [place], [place], [address] , [place]. tel:[phone] PREV VISIT, NEW, AGE 18-39 [facility], [address], [place], [address], [place] tel:[phone] [facility] Physical (chief complaint) Dietary surveillance and counselingRoutine Medical ExamRoutine Medical Exam 3 Geraldo Sigala [address], [place], [place], [address] , [place]. tel:[phone] Family History Family Member Type Diagnosis Age At Onset Mother Problem (finding) Hypertension Father Problem (finding) Unknown Disease Father Problem (finding) Other Payers Payer name Insurance type Covered republican ID Authoriza tion(s) No Information Social History [...] ordered Referral Referred To: Dwayne Dimas [address] [place], [phone] Ordered: Referrals: Dwayne Dimas. Evaluate and treat ordered Referral Ordered: Referrals: Hematology. 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 ordered Referral Ordered: [facility] KIDNEY ordered History Of Present Illness Encounter Date Complaint History Of Prese nt Illness ADD Pt has ADD Pt ta kes ritalin. Pt doing ok. Pt feels more focused proteinuria1 Pt sees nephrolo gy for proteuria pt has normal UO. constipation1 Pt has chronic c onstipation Pt had benign colonoscopy Pt takes lactulose and doing ok Pt has daily BM. Pt denies any blood liver1 pt has cirrhosis vs fatty lier. Pt has chronic elevate bili Pt is seeing GI at [facility]. Pt is not very good historian. [...] atresia. polycythemia. proteinuria. 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 Pt is doing stable now. Pt [...] doing ok. Pt has mild mental retardation ADD Pt has ADD, inat tentive type .Pt takes ritalin and doing ok. pt feels more focused. Pt denies any appetie loss asthma1 Pt has asthma. P t has been using aerospan and he rarely uses venotlin when he uses aerospan. However. aerospan is in back order so he needs to cchange to different inhaler. We tried qvar but hiss insurance did not cover it. ADD pt has ADD Pt white s chronic developmental delay. pt takes ritalin for many years to keep him alert. Pt doing ok. Pt denies any appetiet loss or abd pain platelet1 Pt has low plate let. Pt denies any bruising or bleeding polycythermia Pt has chronic p olycythermia. pt sees hematology. Pt was told that it is due to chronic deoxygen state from his cardiac condition. Pt denies any chest pain or sob liver1 Pt has liver cir rhosis and also high bili. Pt sees liver specialist. Pt was told he does not have hep C. Pt denies any abd pain Pt does not drink alcohol or use tylenol proteinuria1 Pt has chornic p roteinuria Pt sees neprhology. Pt denies any UTI ADD Pt has ADD Pt white s difficulty with focus and concentration Pt has chronic learning disaiblyt. Pt also has chornic constipation. Pt uses lactulose PHysical PT needs annual physical. Pt has [...] any seizure Pt denies any other complaints chest pain1 pt was eating di nner [...] ago. Pt denies any exertional chest pain. constipation1 Pt has chronic c onsipation. Pt uses lactulose Pt doing ok Pt had benign colonosocpy 2014 sleep apnea1 Pt has sleep clinical sociologist ea. CPAP soon. Pt feels fatigue and he dose snore asthma1 Pt has been Reflektion and is doing ok Pt rarely uses venotlin. Pt denies any acute SOB form Pt needs transpo rtation form completed. Pt has chronic learning disorder since childhood. Pt unable to drive. His mom unable to drive him to physician office asthma1 Pt has asthma. P t was on qvar and venotlin. Pt needs venotlin once every two weeks Insurance no longer cover qvar. Pt denies any acute sob bilirubin Pt has mildly hi gh direct bilirubin. Pt told me he is seeing liver specialist at [facility] for fatty liver. sleep apnea1 Pt has sleep clinical sociologist ea. Pt will go back to lab for CPAP. Pt feels fatigue and also he does snore constipation1 Pt has chronic c onstipation. Pt uses lactulose Pt doing ok Pt has BM 1-2 per week on lacutose. thyroid Pt has normal TS H but elevated TPO. Pt denies any dysphagia bilirubin Pt has high bili payne. Pt denies any abd pain or any jaundice. Pt has not seen GI yet. ADD Pt has ADD Pt ta kes [...] denies any abd pain or gERd symptoms. ADD Pt takes ritalin and is doing ok. Pt denies any abd pain or any appetite loss. Pt feels better mood and better concentration dry skin Pt has dry skin and he uses steroid topical PRN and doing ok asthma The initial visi t date was 01/23/2015. Additional information: Pt uses albuterol 1-2 per week. Pt denies any regular sOB or coughing. Instructions Date Instruction Additional Infor mation Special diet education Related t o Body mass index (BMI) 28.0-28.9, adult Increase physical activity Relat ed to Asthma Weight management Related to Ast hma Special diet education Related t o Body mass index (BMI) 26.0-26.9, adult Increase activity. Related to En cntr for [...] Weight management Related to Thr ombocytopenia Prescribed Activity and Exercise Education Related to [...] caloric intake Related to Dietary surveillance counseling Assessments Type Assessment Date No Information
[2025-01-22] VITALS (10 sets, daily range): BP systolic 74–123; BP diastolic 50–90; PULSE 88–158; RESP 15–20; O2SAT 93–100
--- NOTE | ~2025-01-22 | XR_ITS ---
EXAMINATION: XR chest 2V DATE: 01/22/2025 16:26 INDICATION: Syncope. Chest pain. TECHNIQUE: PA and lateral views of the chest were obtained. COMPARISON: Chest radiograph dated 12/24/2022 FINDINGS: The lungs are clear with no focal airspace opacities, pulmonary edema, pleural effusion or pneumothorax. The cardiomediastinal silhouette is normal. Median sternotomy wires and mediastinal surgical clips are seen which date back to at least 02/09/2014 which along with the small size of the median sternotomy wires suggests sequela of likely childhood congenital heart surgery. Correlate with surgical history. IMPRESSION: 1. No acute cardiopulmonary disease. Reviewed, dictated and finalized at location A.
--- OUTSIDE RECORDS SUMMARY | 2025-01-22 13:48 | XMS_ITS | Encounter Summary ---
Author Organization [facility] Address [address] [place] [address] Care Team Providers Care Automotive Drivability Technician Name Role Phone Rm Israel MD Primary Care Provider [phone] Emily De PA-C Unavailable Encounter Details Date Type Department Care Team (Late st Contact Info) Description 01/11/2025 Results Follow-Up [facility] - GI [address] [facility], [place] [id number] Bro Xavier MD [facility] [place] [address] Social History Tobacco Use Types Packs/Day Years Used Date Smoking Tobacco: Never Smokeless Tobacco: Never Alcohol Use Standard Drinks/Week Comments No 0 (1 standard drink = 0.6 oz pur e alcohol) AUDIT-C Answer Date Recorded Q1: How often do you have a drink containing alc ohol? Never 02/10/2024 Average Number of Drinks Not on file 024 Q3: How often do you have si x or more drinks on one occasion? Never 02/10/2024 Education Answer Date Recorded What is the highest level of school you have completed or the highest degree you have received? High school graduate 02/06/2021 Sex and Gender Information Value Date Recorded Sex Assigned at Not on file Legal Sex Male 5:33 AM MANAGER SURGICAL Gender Identity Not on file Sexual Orientation Not on file Occupation Industry Job Start Date Job End Date not working Not on file Not on file Not on file documented as of this encounter Functional Status * Is person deaf or have serious hearing difficulty? Answer Date of Assessment Author No 04/07/2024 10:58 AM Leann Clement RN * Is person blind or have serious difficulty seeing? Answer Date of Assessment Author No 04/07/2024 10:58 AM Leann Clement RN * Does person have serious difficulty walking/climbing stairs? Answer Date of Assessment Author No 04/07/2024 10:58 AM Leann Clement RN * Does person have difficulty dressing/bathing? Answer Date of Assessment Author No 04/07/2024 10:58 AM Leann Clement RN * Does person have difficulty doing errands alone? Answer Date of Assessment Author No 04/07/2024 10:58 AM Leann Clement RN documented as of this encounter Mental Status * Does person have difficulty concentrating/remembering/making decisions? Answer Entry Date Author No 04/07/2024 10:58 AM Leann Clement RN documented in this encounter Progress Notes * Bro Xavier MD - 01/11/2025 11:06 AM CDT Stable liver enzymes. Fluctuating Tbili. No ongoing liver sx. Continue to monitor along with cardiology. documented in this encounter Plan of Treatment Upcoming Encounters Date Type Department Care Team (Late st Contact Info) Description 04/04/2025 9:30 AM MANAGER SURGICAL Office Visit [facility] - Pulmonology [address] [facility] [place] [address] Nasim Barrow MD [address] [place] [address] [address] DIV OF PULMONARY/[place] [address] 01/01/2026 9:30 AM CDT Appointment [facility] [address] [place] [address] Bro Xavier MD [address] [place] [address] [address] [place] [address] 01/01/2026 10:30 AM CDT Office Visit [facility] - GI [address] [facility], [place] [address] Bro Xavier MD [address] [place] [address] documented as of this encounter Goals Goal Patient Goal Type Associated Problems Recent Progress Patient-Stated? Author Medication Management General On track( 9:41 AM CDT) No Salome Bergeron, RN Note: Expected end date: Ongoing Interventions: Take all medications as prescribed Let your doctor know right away about any changes in your medications Make sure to request a refill of your medication at least one week prior to your last dose Safety General On track( 9:41 AM CDT) No Catrina nOeal, ZORAIDA Note: Expected end date: ongoing Interventions: Your nurse will assess your risk for falls/injury each visit Use appropriate and safe transfer methods Make sure appropriate safety devices are available and within reach Review the fall prevention instruction sheet given to you during your visit Be aware of medications that could predispose you to falling Wear non-skid/rubber sole footwear Wear glasses/hearing aid Keep personal items within easy reach Use some light at night in your room Keep walking paths clutter free and clear Maintain an unobstructed path to the bathroom documented as of this encounter Visit Diagnoses Not on filedocumented in this encounter Care Teams Automotive Drivability Technician Relationship Specialty Start Date End Date Rm Israel MD [address] [place] [address] PCP - General 07/19/22 Emily De PA-C [address] [place] [address] Physician Doctor Of Optometry Pediatric Cardiology 12/24/23 documented as of this encounter
--- OUTSIDE RECORDS SUMMARY | 2025-01-22 13:48 | XMS_ITS | Clinical Summary ---
Author Organization [facility] Address [address], [place] [address] Phone Care Team Providers Care National Van Truck Driver Name Role Phone Jose Angel Chow MD Primary Care Provider [phone] Allergies No known active allergies Medications omeprazole (PriLOSEC) [address] capsule one tab daily 0 06/25/2016 Active cholecalciferol (VITAMIN D-3) 2000 units capsule one tab daily 0 06/19/2016 Active rivaroxaban (XARELTO) 20 MG tablet Take 20 mg by mouth 1 (one) time each day Take with food. Active cetirizine (ZyrTEC) 10 MG tablet Take 10 mg by mouth 1 (one) time each day 08/26/2021 Active atenolol (TENORMIN) 100 MG tablet Take 100 mg by mouth 1 (one) time each day Active levETIRAcetam (KEPPRA) 500 MG tablet Take 500 mg by mouth 2 (two) times a day Active enalapril (VASOTEC) 10 MG tablet Take 10 mg by mouth 1 (one) time each day Active Active Problems Problem Noted Date Diagnosed Date Multiple renal cysts 06/19/2016 Essential (primary) hypertension 06/19/2016 Proteinuria 06/19/2016 Resolved Problems Problem Noted Date Diagnosed Date Resolved Date Chronic kidney disease, stage 2 (mild) 03/05/2022 09/20/2024 Vitamin D deficiency 06/19/2016 021 Immunizations Immunization Administration Dates Next Due Influenza Split High Dose Preservative Free IM 03/18/2017 Influenza TIV (IM) 03/18/2016, 5(Deferred: Patient Refused) Family History Medical History Relation Comments Hypertensive disorder Mother Diabetes mellitus Relative 1 Hypertensive disorder Relative 2 Hypertensive disorder Sibling Relation Status Comments Mother Relative 1 Relative 2 Sibling Social History Tobacco Use Types Packs/Day Years Used Date Smoking Tobacco: Never Smokeless Tobacco: Never Tobacco Cessation:Counseling Given: Not Answered Alcohol Use Standard Drinks/Week Comments No 0 (1 standard drink = 0.6 oz pur e alcohol) Sex and Gender Information Value Date Recorded Sex Assigned at Not on file Legal Sex Male 8:58 AM MST Gender Identity Not on file Sexual Orientation Not on file Last Filed Vital Signs Vital Sign Reading Time Taken Comments Blood Pressure 126/84 07/15/2023 3:57 PM ELECTRICIAN MANAGER Pulse 114 09/12/2021 1:07 PM CDT Temperature 36.8 C (98.2 F) 09/12/2021 1:07 PM CDT Respiratory Rate - - Oxygen Saturation - - Inhaled Oxygen Concentration - - Weight 86.2 kg (190 lb) 07/15/2023 3:57 PM ELECTRICIAN MANAGER Height 172.7 cm (5' 8) 03/13/2022 11:04 AM CDT Body Mass Index 28.89 03/13/2022 11:04 AM CDT Plan of Treatment Upcoming Encounters Date Type Department Care Team ([facility] st Contact Info) Description 02/01/2025 2:40 PM CDT Telemedicine [facility] [address] [facility] [address] [place] [address] Jorge Lowry MD [address] [place] [id number] Health Maintenance Due Date Last Done Comments Pneumococcal PPSV23 Highest Risk Adult (2 of 3 - PPSV23) 09/02/2016 07/08/2016 Influenza Vaccine (#1) 2025 0, 04/15/2019, 02/20/2018, Additional history exists Insurance PM [employer]ANCE Care Teams National Van Truck Driver Relationship Specialty Start Date End Date Jose Angel Chow MD [address] [place] [id number] PCP - General 06/10/24
--- OUTSIDE RECORDS SUMMARY | 2025-01-22 13:48 | XMS_ITS | Clinical Summary ---
Author Organization [facility] Address [facility] [place] [address] Care Team Providers Care Air Value Tester Name Role Phone Unavailable Primary Care Provider Unavailabl e Social History Tobacco Use Types Packs/Day Years Used Date Smoking Tobacco: Never Assessed Sex and Gender Information Value Date Recorded Sex Assigned at Not on file Legal Sex Male 5:51 PM CDT Gender Identity Not on file Sexual Orientation Not on file Plan of Treatment Health Maintenance Due Date Last Done Comments Annual Physical 1989 Hepatitis C 2004 DTaP, Tdap and Td Vaccines ( 1 - Tdap) 2005 Hepatitis B Vaccines (1 of 3 - 19+ 3-dose series) 2005 HPV Vaccines (1 - 3-dose SCD M series) 2013 COVID-19 Vaccine (2023-2 5 season) 2024 Meningococcal B Vaccine Aged Out No l onger eligible based on patient's age to complete this topic Meningococcal Vaccine Aged Out No shiraz esteban eligible based on patient's age to complete this topic Pneumococcal Vaccine: Pediat rics (0 to 5 Years) and At-Risk Patients (6 to 49 Years) Aged Out No longer eligible b ased on patient's age to complete this topic RSV Immunizations Under 20 Months Aged Out No longer eligible based on patient's age to complete this topic
--- OUTSIDE RECORDS SUMMARY | 2025-01-22 13:48 | XMS_ITS | Clinical Summary ---
Author Organization [facility] [place] Address [facility] [place] [address] Care Team Providers Care Lesson Instructor Name Role Phone Jose Angel Chow MD Primary Care Provider [phone] Allergies No known active allergies Medications albuterol HFA (PROVENTIL HFA,VENTOLIN HFA,PROAIR HFA) 90 mcg/actuation inhaler Inhale 2 puffs every 6 (six) hours as needed for shortness of breath 1 Active atenoloL (TENORMIN) 50 mg tablet Take 2 tablets (100 mg total) by mouth daily 7 Active cholecalciferol (VITAMIN D-3) 25 mcg (1,000 unit) tablet Take 2 tablets (2,000 Units total) by mouth daily Active enalapril (VASOTEC) 10 mg tablet Take 1 tablet (10 mg total) by mouth daily 1 Active omeprazole (PriLOSEC) 40 mg capsule Take 1 capsule (40 mg total) by mouth daily before breakfast Active Flovent Diskus 100 mcg/actuation diskus inhaler INHALE 1 TO 2 PUFFS BY MOUTH TWICE DAILY 1 Active fluticasone propionate (FLONASE) 50 mcg/actuation nasal spray Administer 2 sprays into each nostril daily 0 Active triamcinolone (KENALOG) 0.1 % cream Apply topically 2 (two) times a day as needed Active Xarelto 20 mg tablet TAKE 1 TABLET BY MOUTH ONCE DAILY WITH EVENING MEAL 1 Active cetirizine (ZyrTEC) 10 mg tablet Take 1 tablet (10 mg total) by mouth daily Active azithromycin (ZITHROMAX) 500 mg tablet TAKE 1 TABLET BY MOUTH ONCE DAILY FOR 5 DAYS 3 Active erythromycin (ILOTYCIN) ophthalmic ointment INSTILL 0.5 INCH STRIP INTO RIGHT EYE 4 TIMES DAILY FOR 7 DAYS 3 Active cetirizine (ZyrTEC) 10 mg tablet Take 1 tablet (10 mg total) by mouth daily 2 Active levETIRAcetam (KEPPRA) 500 mg tablet Take 1 tablet (500 mg total) by mouth 2 (two) times a day 180 tablet 3 4 Active Active Problems Problem Noted Date Diagnosed Date Cerebrovascular disease 09/28/2023 Transient alteration of awareness 04/06/2023 Partial symptomatic epilepsy with complex partial seizures, intractable, without status epilepticus 10/16/2020 GERD (gastroesophageal reflux disease) 9 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 Controlled with meds. MAR (obstructive sleep apnea) 07/08/2016 Overview (04/05/2021): Overview: CPAP started May 2016 Cystic kidney disease 06/19/2016 Essential (primary) hypertension 06/19/2016 Vitamin D deficiency 06/19/2016 ADHD (attention deficit hyperactivity disorder) 05/27/2015 Cirrhosis 04/26/2015 Overview (04/05/2021): Overview: 04/18/[address]: slight nodular liver contour, caudate lobe hypertrophy, 2.1 cm hypoattenuating area during all contrast phases in segment 3, patent vessels but dilated IVC and hepatic veins, no ascites, collateral veins in lower abd wall 05/10/15 MRI: liver surface nodularity not appreciated, segment 3 hypoattenuating area again seen, indeterminate, borderline splenomegaly 06/13/15 TJ pressures Right atrium: 10 mm of Hg Right free hepatic vein: 12 mm of Hg Wedged hepatic pressure = portal pressure: 14 mm of Hg Hepatic venous pressure gradient: 2 mm of Hg. (Wedged - free hepatic vein) Hepatic atrial pressure gradient: 4 mm of Hg (wedged - right atrial) 06/13/15 liver biopsy: mild steatosis, mild sinusoidal dilatation, focal zone 3 plate atrophy, stage 2-3 fibrosis, c/w burned out HARKINS or prior passive congestion Immunizations Immunization Administration Dates Next Due Hep A, 3 Dose 12/02/2000 Hep B Vaccine 03/01/2016,10/22/2015,09/06/2015 Influenza, Quadrivalent, Spl it, Preservative Free, Intramuscular 04/24/2020,04/15/2019,02/20/2018,03/10,04/24/2016 Influenza, Trivalent, High D ose, Split, Preservative Free, Intramuscular 03/18/2017 Influenza, Trivalent, IM (MDV) 03/20/2016,2012 Influenza, Trivalent, Preser vative Free, Intramuscular 05/21/2015 Influenza, Unspecified 03/27/2004 Pneumococcal Conjugate PCV 13 07/08/2016 Surgical History Surgery Date Site/Laterality Comments OTHER SURGICAL HISTORY shunt placement ORAL SURGERY Medical History Medical History Date Comments Seizures (HCC) Stroke (HCC) Essential hypertension Vitamin D deficiency GERD (gastroesophageal reflux disease) Cirrhosis (HCC) Adhd MAR (obstructive sleep apnea) Family History Medical History Relation Name Comments Nephrolithiasis Father Hypertension Mother Relation Name Status Comments Father Alive Mother Alive Social History Tobacco Use Types Packs/Day Years Used Date Smoking Tobacco: Never Smokeless Tobacco: Never Tobacco Cessation:Counseling Given: Not Answered AUDIT-C Answer Date Recorded Q1: How often do you have a drink containing alc ohol? Never 04/05/2021 Average Number of Drinks Not on file 021 Q3: How often do you have si x or more drinks on one occasion? Never 04/05/2021 Personal Safety Answer Date Recorded Getting School Help Needed Not on file 05/10 Sex and Gender Information Value Date Recorded Sex Assigned at Not on file Legal Sex Male 6:11 PM [employer] CHAIN MA[employer] Gender Identity Not on file Sexual Orientation Not on file Obstetrics History Last Filed Vital Signs Vital Sign Reading Time Taken Comments Blood Pressure 116/80 09/25/2023 11:19 AM CDT Pulse 98 09/25/2023 11:19 AM CDT Temperature 36.3 C (97.3 F) 04/07/2022 11:04 AM HAND CHAIN MAKER Respiratory Rate 20 04/07/2022 11:04 AM HAND CHAIN MAKER Oxygen Saturation 96% 04/06/2023 10:34 AM HAND CHAIN MAKER Inhaled Oxygen Concentration - - Weight 93.9 kg (207 lb) 09/25/2023 11:19 AM CDT Height 165.1 cm (5' 5) 09/25/2023 11:19 AM CDT Body Mass Index 34.45 09/25/2023 11:19 AM CDT Plan of Treatment Health Maintenance Due Date Last Done Comments Depression Screening 1986 Hepatitis C Screening 1986 DTaP/Tdap/Td Vaccine (1 - Tdap) 1997 Varicella Vaccines (1 of 2 - 13+ 2-dose series) 11/08/1999 Regular Well Visit/Exam 18-64 2004 HPV Vaccines (1 - 3-dose SCD M series) 2013 Pneumococcal vaccine <65 (2 of 2 - PPSV23, PCV20, or PCV21) 09/02/2016 07/08/2016 Influenza Vaccine (#1) 2025 0, 04/15/2019, 02/20/2018, Additional history exists Insurance [facility] Advance Directives For more information, please contact: [phone] Documents on File Type Date Recorded Patient 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
--- OUTSIDE RECORDS SUMMARY | 2025-01-22 13:48 | XMS_ITS | Clinical Summary ---
Author Organization [facility] Address [address] [place] [address] Care Team Providers Care Hurl Shaker Name Role Phone Rm Israel MD Primary Care Provider Emily De PA-C Unavailable Source Comments [facility],non-owned Affiliates and Associated Physician Practices is amultiple site organization consisting of ambulatory clinics and hospital sitesin [place], [place], [place] and [place]. This disclosure is being madepursuant to the Care Everywhere program and may not contain all information available regarding this patient. Last updated 18.[facility] Allergies No known active allergies Medications * Be aware that medications may not be up to date on this document. Alwaysverify current medications with the patient. fluticasone propionate (FLONASE) 50 MCG/ACT nasal spray Murchison 2 (two) sprays into each nostril once daily 0 Active albuterol HFA (PROVENTIL;VENTOL IN;PROAIR) 108 (90 BASE) MCG/ACT inhaler 2 puffs as needed 30 minutes before exercise every 6 hours. 3 Inhaler 3 2 Active vitamin D, cholecalciferol, 1000 UNITS tablet Take 2 (two) tablets by mouth once daily Active triamcinolone acetonide (KENALOG) 0.1 % cream Apply to affected area 2 times daily as needed Active omeprazole (PRILOSEC) 40 MG capsule Take 1 (one) capsule by mouth daily before breakfast Active rivaroxaban (Xarelto) 20 MG tablet Take 1 tablet by mouth once daily with food 90 tablet 3 3 Active levETIRAcetam (Keppra) 500 MG tablet Take 1 (one) tablet by mouth 2 times daily 4 Active atenolol (Tenormin) 100 MG tablet Take 1 (one) tablet by mouth once daily Active Flovent Diskus 50 MCG/ACT inhaler INHALE 1 TO 2 PUFFS BY MOUTH TWICE DAILY 3 Active tadalafil (Cialis) 20 MG tabletIndications :Pulmonary hypertension (HCC),Tricuspid atresia (HCC),Hypoplastic right heart (HCC) Take 2 (two) tablets by mouth once daily 60 tablet 3 4 Active sacubitril-valsar german (Entresto) 24-26 MG tablet Take 1 (one) tablet by mouth 2 times daily 60 tablet 11 4 Active empagliflozin (Jardiance) 10 MG tabletIndications :Chronic combined systolic and diastolic heart failure (HCC),Hypoplastic right heart (HCC) Take 1 (one) tablet by mouth once daily 90 tablet 3 4 Active Active Problems Problem Noted Date Diagnosed Date 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 Had surgery when 3 days old at [facility]. 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 Controlled with meds. MAR (obstructive sleep apnea) 07/08/2016 Overview (07/29/2018): Overview: CPAP started May 2016 Essential (primary) hypertension 06/19/2016 Proteinuria 06/19/2016 Vitamin D deficiency 06/19/2016 Cystic kidney disease 06/19/2016 ADHD (attention deficit hyperactivity disorder) 05/27/2015 Cirrhosis 04/26/2015 Overview (01/04/2024): Overview: 04/18/[address]: slight nodular [...] burned out HARKINS or prior passive congestion 01/04/24 Fibroscan CAP 350, LSM 14.9 kPa Chest pain 05/21/2010 Overview (05/21/2010): Assessment: Occasional chest pain with exertion. EKG and echo stable. Plan: Diagnostic cardiac catheterization. 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 (AF LURIA, FLUZONE TRIVALENT; 6MO+) (IIV3) 03/13/2013 FLU VACCINE TRI IIV3 SPLIT P F IM (FLUVIRIN) 05/21/2015 HEP B VACCINE, ADULT 3 DOSE 03/01/2016, 6,09/06/2015 Hep A Peds 3 Dose 12/02/2000 INFLUENZA VACCINE 03/27/2004 INFLUENZA VACCINE, QUADR. (F LUZONE; FLULAVAL; FLUARIX; AFLURIA QUADRIVALENT; 6MO+), 0.5 ML (IIV4) 04/24/2020,04/15/2019,02/20/2018,2016,04/24/2016 Pneumococcal Pcv13 Conj 07/08/2016 Family History Medical History Relation Name Comments Heart Surgery Maternal Grandfather MV Hypertension Maternal Grandfather Hypertension Maternal Grandmother Other Maternal Grandmother broken hip THR, ? osteoporosis Hypertension Mother Seizures Sister gama Arrhythmia Neg Hx CVA<55(male) Neg Hx CVA<65(female) Neg Hx Cardiomyopathy Neg Hx Congenital Heart defect Neg Hx Long QT Syndrome Neg Hx DC<55(male) Neg Hx DC<65(female) Neg Hx Marfan Syndrome Neg Hx Pacemaker Neg Hx Sudd. 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 Gender Identity Not on file Sexual Orientation Not on file Occupation Industry Job Start Date Job End Date not working Not on file Not on file Not on file Last Filed Vital Signs Vital Sign Reading Time Taken Comments Blood Pressure 139/93 01/09/2025 9:38 AM CDT Pulse 92 01/09/2025 9:34 AM CDT Temperature 36.4 C (97.6 F) 01/09/2025 9:34 AM CDT Respiratory Rate 17 10/04/2024 9:02 AM CDT Oxygen Saturation 95% 01/09/2025 9:34 AM CDT Inhaled Oxygen Concentration - - Weight 88.6 kg (195 lb 6.4 oz) 01/09/2025 9:34 A M CDT Height 172.7 cm (5' 8) 10/04/2024 9:02 AM CDT Body Mass Index 29.71 10/04/2024 9:02 AM CDT Plan of Treatment Upcoming Encounters Date Type Department Care Team (Late st Contact Info) Description 04/04/2025 9:30 AM METAL WIRE TECHNICIAN Office Visit [facility] - Pulmonology [address] [place] [address] [place] [phone] Nasim Barrow MD [address] [place] [address] [address] DIV OF PULMONARY/[place] [phone] 01/01/2026 9:30 AM CDT Appointment [facility] [address] [place] [phone] Bro Xavier MD [address] [place] [address] [address] [place] [address] 01/01/2026 10:30 AM CDT Office Visit [facility] - GI [address] [place] [address] [place] [address] Bro Xavier MD [address] [address] Health Maintenance Due Date Last Done Comments HIV SCREENING 2001 DTAP/TDAP/TD VACCINES (1 - Tdap) 2005 HPV VACCINE (1 - 3-dose SCDM series) 2013 PNEUMOCOCCAL VACCINE (2 of 2 - PPSV23, PCV20, or PCV21) 09/02/2016 07/08/2016 COVID-19 VACCINE (1 - season) 2024 DEPRESSION SCREENING 05/25/2024 INFLUENZA VACCINE (#1) 2025 , 04/15/2019, 02/20/2018, Additional history exists ZOSTER VACCINE (1 of 2) 2036 HEPATITIS C SCREENING Completed 05/28/2015, 016 HEPATITIS B VACCINE Completed 03/01/2016, 10/22/2015, 09/06/2015 HIB VACCINE Aged Out No longer eligi ble based on patient's age to complete this topic MENINGOCOCCAL (Group B) VACCINE SHARED DECISION-MAKING Aged Out No longer eligible based on patient's age to complete this topic MENINGOCOCCAL GROUPS A/C/Y/W VACCINE Aged Out No longer eligible based on patient's age to complete this topic Goals Goal Patient Goal Type Associated Problems Recent Progress Patient-Stated? Author Medication Management General On track( 025 9:41 AM CDT) No Salome Bergeron, RN Note: Expected end date: Ongoing Interventions: Take all medications as prescribed Let your doctor know right away about any changes in your medications Make sure to request a refill of your medication at least one week prior to your last dose Safety General On track( 025 9:41 AM CDT) Catrina Richardson, RN Note: Expected end date: ongoing Interventions: Your [...] Maintain an unobstructed path to the bathroom Procedures Procedure Name Priority Date/Time Associated Diagnosis Comments PT-INR Routine 01/09/2025 10:45 AM CDT 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 COMPREHENSIVE METABOLIC PANEL Routine 01/09/2025 10:45 AM CDT 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 CBC W/O DIFFERENTIAL Routine 01/09/2025 10:45 AM CDT 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 ALPHA FETOPROTEIN BLOOD TUMOR MARKER Routine 01/09/2025 10:45 AM CDT 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 Results are not comparable across different methods. AFP values obtained by [facility] using an De Oliveira Alinity Immunoassay. Blood BLOOD SPECIMEN / Unknown Lab Venipuncture / Unknown 01/09/2025 10:45 AM CDT 01/09/2025 10:56 AM CDT us Bro Xavier MD LAB - CHEMISTRY ORDERABLES Fin al Result [facility] [address] [place] [id number] [phone] * PT-INR (01/09/2025 10:45 AM CDT) Pathologist [facility] PT 14.1 12.1 - 14.8 Seconds 01/09/2025 11:23 AM T [facility] INR 1.1 See Comment 01/09/2025 11:23 AM [facility] Comment:The suggested therap eutic range for standard coumadin (warfarin) therapy is an INR of 2.0-3.0. For high-risk patients (Mechanical Mitral Valve Prosthesis, etc.), the suggested prophylactic therapeutic range is an INR of 2.5-3.5. Blood BLOOD SPECIMEN / Unknown Lab Venipuncture / Unknown 01/09/2025 10:45 AM CDT 01/09/2025 10:49 AM CDT Bro Xavier MD LAB - COAGULATION ORDERABLES F inal Result [address] [address], [facility] [phone] * (ABNORMAL) CBC W/O DIFFERENTIAL (01/09/2025 10:45 AM CDT) [facility] WBC 6.3 4.0 - 10.7 x10E9/L 01/09/2025 11:33 AM [facility] RBC Count 5.62 4.30 - 5.80 x10E12/L 01/09/2025 11:33 AM [facility] Hemoglobin 17.2 13.3 - 17.5 g/dL 01/09/2025 11:33 AM [facility] Hematocrit 50.6 38.7 - 51.1 % 01/09/2025 11:33 AM [facility] MCV 90.0 80.0 - 98.0 fL 01/09/2025 11:33 AM [facility] MCH 30.6 26.7 - 33.6 pg 01/09/2025 11:33 AM [facility] MCHC 34.0 31.7 - 36.3 g/dL 01/09/2025 11:33 AM [facility] RDW-CV 12.6 11.3 - 14.8 % 01/09/2025 11:33 AM [facility] Platelet Count 88(L) 150 - 420 x10E9/L 01/09/2025 11:33 AM [facility] MPV 11.7(H) 7.8 - 11.4 fL 01/09/2025 11:33 AM [facility] Blood BLOOD SPECIMEN / Unknown Lab Venipuncture / Unknown 01/09/2025 10:45 AM CDT 01/09/2025 10:56 AM CDT us Bro Xavier MD LAB - HEMATOLOGY ORDERABLES Fi nal Result [facility] [address] [place] [address], [facility] [phone] * (ABNORMAL) COMPREHENSIVE METABOLIC PANEL (01/09/2025 10:45 AM CDT) BUN 17 7 - 26 mg/dL 01/09/2025 11:54 AM [facility] Creatinine 0.87 0.71 - 1.16 mg/dL 01/09/2025 11:54 AM [facility] Sodium 139 136 - 145 mmol/L 01/09/2025 11:54 AM [facility] Potassium 4.1 3.5 - 4.5 mmol/L 01/09/2025 11:54 AM [facility] Chloride 108(H) 98 - 107 mmol/L 01/09/2025 11:54 AM [facility] CO2 22 22 - 29 mmol/L 01/09/2025 11:54 AM [facility] Glucose 86 70 - 99 mg/dL 01/09/2025 11:54 AM [facility] Calcium 9.9 8.4 - 10.2 mg/dL 01/09/2025 11:54 AM [facility] Protein Total 8.6(H) 6.0 - 8.3 g/dL 01/09/2025 11:54 AM [facility] Albumin 5.1(H) 3.4 - 5.0 g/dL 01/09/2025 11:54 AM [facility] Bilirubin Total 2.7(H) 0.2 - 1.2 mg/dL 01/09/2025 11:54 AM [facility] Alkaline Phosphatase 112 40 - 150 U/L 01/09/2025 11:54 AM [facility] ALT 19 5 - 55 U/L 01/09/2025 11:54 AM [facility] AST 23 5 - 34 U/L 01/09/2025 11:54 AM [facility] Anion Gap 9 6 - 16 01/09/2025 11:54 AM [facility] BUN/Creatinine Ratio 20 7 - 23 01/09/2025 11:54 AM [facility] Osmolality Calculated 289 275 - 295 mOsm/kg 01/09/2025 11:54 AM [facility] Albumin/Globulin Ratio 1.5 1.1 - 2.3 01/09/2025 11:54 AM [facility] eGFR by CKD-EPI >90 >=90 mL/min/1.7 3 m2 01/09/2025 11:54 AM [facility] Comment:Estimated Glomerular Filtration Rate (eGFR) calculated using the CKD-EPI Creatinine Equation (2020), per the National Kidney Foundation and [place] [employer] Nephrology recommendations. Blood BLOOD SPECIMEN / Unknown Lab Venipuncture / Unknown 01/09/2025 10:45 AM CDT 01/09/2025 10:56 AM CDT us Bro Xavier MD LAB - CHEMISTRY ORDERABLES Fin al Result [facility] [address] [place] [address], [facility] [phone] * US Abdomen Limited (01/09/2025 8:50 AM CDT) Anatomical Region Laterality Modality Abdomen Ultrasound 01/09/2025 8:52 AM CDT Impressions 01/09/2025 10:11 AM CDT Impression: Cirrhotic liver morphology. No intrahepatic lesions visualized. Liver Visualization Score B: Moderate limitations. US-1 Negative. Repeat surveillance US in 6 months. Report drafted by Ale Sanchez (resident). > Dictated by Coagulating Bath Mixer I, Charissa Quiles have personally reviewed and interpreted this examination/study. > Interpreting Provider: Charissa Quiles on 01/09/2025 10:11 AM Narrative 01/09/2025 10:11 AM CDT PROCEDURE: US ABDOMEN LIMITED DATE/TIME OF EXAM: 01/09/2025 8:50 AM CLINICAL INFORMATION: None relevant/not provided if blank. Indication: K74.60: Hepatic cirrhosis, unspecified hepatic cirrhosis type, unspecified whether ascites present (HCC) Additional History: COMPARISON: Abdominal ultrasound 01/04/2024. Technique: Grayscale and color Doppler ultrasound evaluation of the hepatobiliary system was performed. Findings: Liver Visualization Score: Moderate limitations in liver visualization Liver Morphology: The liver has a coarse echotexture and mildly nodular surface. There is hypertrophy of the left hemiliver. Liver Observations: None. Main Portal Vein: Color Doppler evaluation demonstrates patency of the main portal vein. Hepatic Veins: Color Doppler evaluation demonstrates patency of the hepatic veins. Bile Ducts: The common bile duct is nondilated, measuring 3 mm. No intrahepatic or extrahepatic biliary dilation. Gallbladder: No gallstones or pericholecystic fluid is seen. Sonographic Brown's sign is negative. Ascites: No ascites is present. Spleen: The spleen measures 11.7 cm in length. Pancreas: The visible pancreas is normal in echogenicity. Right Kidney: The right kidney measures 14.2 cm in length, mildly enlarged likely compensatory. There is a cyst within the superior pole of the right kidney measuring 1.5 x 1.2 x 1 cm. Limited views of the right kidney reveal no evidence of nephrolithiasis or hydronephrosis. No discrete mass identified. Other: Incidentally, atrophic left kidney with multiple cysts. Procedure Note Charissa Self MD - 01/09/2025 PROCEDURE: US ABDOMEN LIMITED DATE/TIME OF EXAM: 01/09/2025 8:50 AM CLINICAL INFORMATION: None relevant/not provided if blank. Indication: K74.60: Hepatic cirrhosis, unspecified hepatic cirrhosistype, unspecified whether ascites present (HCC) Additional History: COMPARISON: Abdominal ultrasound 01/04/2024. Technique: Grayscale and color Doppler ultrasound evaluation of the hepatobiliary system was performed. Findings: Liver Visualization Score: Moderate limitations in liver visualization Liver Morphology: The liver has a coarse echotexture and mildly nodular surface. There is hypertrophy of the left hemiliver. Liver Observations: None. Main Portal Vein: Color Doppler evaluation demonstrates patency of the main portal vein. Hepatic Veins: Color Doppler evaluation demonstrates patency of the hepatic veins. Bile Ducts: The common bile duct is nondilated, measuring 3 mm. No intrahepatic or extrahepatic biliary dilation. Gallbladder: No gallstones or pericholecystic fluid is seen. Sonographic Brown'ssign is negative. Ascites: No ascites is present. Spleen: The spleen measures 11.7 cm in length. Pancreas: The visible pancreas is normal in echogenicity. Right Kidney: The right kidney measures 14.2 cm in length, mildly enlarged likely compensatory. There is a cyst within the superior pole of the rightkidney measuring 1.5 x 1.2 x 1 cm. Limited views of the right kidney reveal no evidence of nephrolithiasis or hydronephrosis. No discrete mass identified. Other: Incidentally, atrophic left kidney with multiple cysts. Impression: Cirrhotic liver morphology. No intrahepatic lesions visualized. Liver Visualization Score B: Moderate limitations. US-1 Negative. Repeat surveillance US in 6 months. Report drafted by Ale Sanchez (resident). > Dictated by Coagulating Bath Mixer I, Charissa Quiles have personally reviewed and interpreted this examination/study. > Interpreting Provider: Charissa Quiles on 01/09/2025 10:11 AM Bro Xavier MD US ORDERABLES Final Result * HEPATITIS C ANTIBODY (05/28/2015 9:59 AM METAL WIRE TECHNICIAN) Pathologist [facility] Hepatitis C Antibody Non-react [facility] Comment: Hepatitis C Antibody screen indicates no serologic evidence of past or current infection with Hepatitis C Virus. Patients with unexplained liver disease who are immunocompromised or suspected of having acute Hepatitis C infection may benefit from Nucleic Acid Test (CHAPO) for Hepatitis C Viral RNA to confirm Hepatitis C status. Blood specimen (specimen) BLOOD SPECIMEN / Unknown 05/28/2015 9:59 AM METAL WIRE TECHNICIAN 05/28/2015 10:08 AM METAL WIRE TECHNICIAN Ronnie Bella MD LAB - CHEMISTRY OR DERABLES Final Result Performing Organization Address City/State/[facility] Co de Phone Number [facility] [address] [place] [address], [facility] [phone] from Last 3 Months or Most Recently Relevant to Health Maintenance Insurance [facility] Member Subscriber Plan / Payer (Ef fective 2016-Present) Name:Darien Herring Jr. Relation to Subscriber:Self Name:DARIEN HERRING Payer ID:[id number] (NAIC) Group ID:Not on file Type:Medicaid Managed Care Address: ATT CLAIMS DEPARTMENT [address] Member Subscriber Plan / Payer (Ef fective 2016-Present) Name:Darien Herring Jr. Relation to Subscriber:Self Name:DARIEN HERRING Payer ID:[id number] (NAIC) Group ID:Not on file Type:Medicaid Managed Care Address: [facility] CLAIMS DEPARTMENT [address] [place] [address] [place] [address] [place] [address] [place] [address] [place] [address] [place] [address] [place] [address] [place] [address] [place] [address] [place] [address] [place] [address] Advance Directives Documents on File Type Date Recorded Patient News Agent Expl anation Advance Directives and Livin g Will 09/03/2015 12:00 AM Care Teams Hurl Shaker Relationship Specialty Start Date End Date Rm Israel MD [address] [facility] [address] [place] [address] PCP - General 07/19/22 Emily De PA-C [address] [place] [address] Physician Field Marketing Lead Pediatric Cardiology 12/24/23
--- NOTE | 2025-01-22 14:09 | ECG_ITS ---
Test Date: 2025-01-22 14:21:11 Measurements Intervals [place] Rate: 114 P: 0 CO: 0 QRS: -87 QRSD: 132 T: 30 QT: 350 QTc: 483 Interpretive Statements SINUS TACHYCARDIA RIGHT BUNDLE BRANCH BLOCK LEFT ANTERIOR FASCICULAR BLOCK ST ELEVATION IN ANT/HIGH LAT LEADS- PROBABLY EARLY REPOLARIZATION ABNORMALITY BASELINE ARTIFACT- III ABNORMAL ECG No previous ECG available for comparison Electronically Signed On 01-22-2025 15:52:09 CDT by Quoc Cedillo D.O.
[2025-01-22] MEDS: LACTATED RINGERS 1,000 ML 999 ML IV CONT ×2 (14:55→15:11)
--- NOTE | 2025-01-22 15:01 | ED.GENADULT ---
HPI - General Adult General Chief complaint: Dizziness Stated complaint: fall from a chair at a coffee shop, dizzy episode Time Seen by Provider: 01/22/25 14:41 History of Present Illness HPI narrative: 39-year-old male with cardiac history and history of partial seizures presents to the emergency department after having 2 syncopal episodes. Patient states he was at home and was sitting on the chair and had not eat or drink in today and did have a syncopal episode. Patient is unsure how long he was unconscious but he states that his mother woke him up set him up and then patient had a 2nd syncopal episode. Upon arrival emergency department patient is tachycardic and hypotensive. Patient denies any other complaints Related Data Home Medications ?Medication ?Instructions ?Recorded ?Confirmed ?Last Taken ?Type cholecalciferol (vitamin D3) 50 2,000 unit PO DAILY 06/25/19 12/24/22 Unknown History mcg (2,000 unit) tablet (Vitamin D3) levetiracetam 1,000 mg tablet 1,000 mg PO BID 06/25/19 12/24/22 Unknown History (Keppra) rivaroxaban 20 mg tablet (Xarelto) 20 mg PO DAILY 06/25/19 12/24/22 Unknown History albuterol sulfate 90 mcg/actuation 2 inh inhalation DIRECTED 08/03/19 12/24/22 Unknown History aerosol inhaler (ProAir HFA) fluticasone propionate 100 2 inh inhalation DIRECTED 12/11/20 12/24/22 Unknown History mcg/actuation blister powder for inhalation (Flovent Diskus) atenolol 100 mg tablet 100 mg DIRECTED 12/24/22 12/24/22 Unknown History cetirizine 10 mg tablet 10 mg DIRECTED 12/24/22 12/24/22 Unknown History enalapril maleate 10 mg tablet 10 mg DIRECTED 12/24/22 12/24/22 Unknown History omeprazole 40 mg capsule,delayed 40 mg DIRECTED 12/24/22 12/24/22 Unknown History release albuterol sulfate 90 mcg/actuation 2 puff inhalation DAILY 01/19/23 01/19/23 Unknown History aerosol inhaler atenolol 100 mg tablet 100 mg PO DAILY 01/19/23 01/19/23 Unknown History azithromycin 500 mg tablet mg 01/19/23 Unknown History cetirizine 10 mg tablet 10 mg PO DAILY 01/19/23 01/19/23 Unknown History enalapril maleate 10 mg tablet 10 mg PO DAILY 01/19/23 01/19/23 Unknown History fluticasone propionate 50 1 mcg inhalation DAILY 01/19/23 01/19/23 Unknown History mcg/actuation blister powder for inhalation (Flovent Diskus) levetiracetam 500 mg tablet 500 mg PO DAILY 01/19/23 01/19/23 Unknown History omeprazole 40 mg capsule,delayed 40 mg PO DAILY 01/19/23 01/19/23 Unknown History release prednisone 20 mg tablet mg 01/19/23 Unknown History prednisone 20 mg tablet mg 01/19/23 Unknown History rivaroxaban 20 mg tablet (Xarelto) 20 mg PO DAILY 01/19/23 01/19/23 Unknown History rivaroxaban 20 mg tablet (Xarelto) mg 01/19/23 01/19/23 Unknown History Allergies Allergy/AdvReac Type Severity Reaction Status Date / Time No Known Allergies Allergy Verified 12/21/23 08:46 Review of Systems Review of Systems: All systems reviewed & are unremarkable except as noted in HPI and below PMFSH Past Medical History Medical History (Updated 01/22/25 @ 18:23 by Deo Ureña MD) Sathish type craniosynostosis Heart murmur Renal disease Hx of seizure disorder Thrombosis ADHD GERD (gastroesophageal reflux disease) 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 Asthma History of DVT (deep vein thrombosis) Epilepsy Surgical History Surgical History (Updated 12/21/23 @ 08:46 by Emmett Pastrana) History of Frank-Taussig shunt History of Ed shunt Hx of cardiac cath History of chest tube placement History of vascular surgery Right coronary sinus repair Family History Family History (System 12/21/23 @ 08:46 by Emmett Pastrana) Other No significant family history Social History Social History (System 12/21/23 @ 08:46 by Emmett Pastrana) Smoking status: Never smoker Second hand tobacco smoke exposure: No Alcohol intake: never Substance use: never Living arrangements: with family Occupation/Education: unemployed Gender identity (if verbalized by the patient): Male Exam Narrative: APPEARANCE: Well appearing, no pain, no distress, well-nourished. HEAD: normocephalic, atraumatic. EYES: PERRLA/EOMI, conjunctivae clear. NOSE: Normal no drainage EARS:TMS clear with good light reflex. THROAT: Pharynx clear, no exudate. NECK: Supple. No adenopathy, no masses. RESPIRATORY: Airway patent, respirations nonlabored. Clear to auscultation bilaterally, no rales, rhonchi, wheezing. CARDIOVASCULAR: Regular rate and rhythm without murmurs rubs or gallops. ABDOMINAL: Soft, nontender, nondistended, normal bowel sounds MUSCULOSKELETAL: Moves all extremities. Strength/ROM intact, No edema, No calf tenderness. NEURO: Alert. Cranial nerves II through XII intact. Good gait. Good coordination SKIN: Warm, dry. Normal Color Course Vital Signs Vital signs: Vital Signs Pulse Rate 115 H 01/22/25 14:08 Respiratory Rate 20 01/22/25 14:08 Blood Pressure 96/69 L 01/22/25 14:08 Pulse Oximetry 93 01/22/25 14:08 Oxygen Delivery Room Air 01/22/25 14:08 Pulse Rate 90 01/22/25 18:15 Respiratory Rate 16 01/22/25 17:45 Blood Pressure 115/84 01/22/25 18:15 Pulse Oximetry 97 01/22/25 17:45 Oxygen Delivery Room Air 01/22/25 14:30 Medical Decision Making [facility] Narrative Medical decision making narrative: 31-year-old male presents emergency department for evaluation for episode syncope that sounds like orthostatic hypotension. Patient admitted he had not had anything to eat or drink today. Patient was feeling lightheaded and dizzy while sitting in chair and fell a chair and when sitting back up he had additional loss of consciousness. Patient was hypotensive upon arrival emergency department but after treatment with IV fluids patient did feel significantly improved. Patient's blood pressure was improved patient was negative on his orthostatic vitals. Patient was able to ambulate in the emergency department without issue. Patient is currently afebrile but does have a minor leukocytosis 10.7 a stable hemoglobin of 18.0. Patient has no acute abnormalities on his CMP chest x-ray is negative for acute cardiopulmonary abnormality. EKG is similar to previous. Patient and family are updated on the results of the workup they are comfortable the plan for discharge and close follow-up Differential Diagnosis Differential Diagnosis: Cardiac arrhythmia, cardiac syncope, vasovagal syncope, orthostatic hypotension, dehydration Vital Signs Vital Signs: Vital Signs Pulse Rate 115 H 01/22/25 14:08 Respiratory Rate 20 01/22/25 14:08 Blood Pressure 96/69 L 01/22/25 14:08 Pulse Oximetry 93 01/22/25 14:08 Oxygen Delivery Room Air 01/22/25 14:08 Pulse Rate 90 01/22/25 18:15 Respiratory Rate 16 01/22/25 17:45 Blood Pressure 115/84 01/22/25 18:15 Pulse Oximetry 97 01/22/25 17:45 Oxygen Delivery Room Air 01/22/25 14:30 Lab Data Lab results reviewed: Yes I reviewed the patient's lab results. 01/22/25 16:15 01/22/25 16:15 Labs: Lab Results 01/22/25 01/22/25 Range/Units 14:48 16:15 WBC 10.7 H (4.5-10.0) K/mm3 RBC 5.78 (4.6-6.20) M/mm3 Hgb 18.0 (14.0-18.0) g/dL Hct 53.5 H (42.0-52.0) % MCV 92.6 (80-100) fl MCH 31.1 (26-34) pg MCHC 33.6 (32-36) g/dl RDW 12.7 (11.5-14.5) % Plt Count 109 L (150-375) k/mm3 MPV 11.5 H (7.4-10.4) fl Immature Gran % (Auto) 0.4 (0-0.5) % Neut % (Auto) 87.1 H (45.5-73.1) % Lymph % (Auto) 7.2 L (18.3-44.2) % [place] % (Auto) 5.0 (2.6-8.5) % Eos % (Auto) 0.1 (0-4.4) % Baso % (Auto) 0.2 (0.2-1.2) % Lymph # (Auto) 0.77 L (0.9-3.2) K/mm3 [place] # (Auto) 0.5 (0.1-0.6) K/mm3 Eos # (Auto) 0.0 (0-0.3) K/mm3 Baso # (Auto) 0.0 (0.0-0.1) K/mm3 Abs Immat Gran (auto) 0.04 H (0.00-0.031) K/mm3 Absolute Neuts (auto) 9.3 H (1.3-6.7) K/mm3 Absolute Nucleated RBC 0.000 (0.0-0.012) K/mm3 Nucleated RBC % 0.0 (0.0-0.2) % % Immature Plt Fraction 6.3 (0.9-11.2) % PT 15.0 H (11.1-14.7) Seconds INR 1.2 APTT 21.0 L (22.3-36.8) Seconds Sodium 139 (137-145) mmol/L Potassium 5.0 (3.4-5.0) mmol/L Chloride 105 (98-107) mmol/L Carbon Dioxide 23 (22-30) mmol/L Anion Gap 11 (4-12) mmol/L BUN 21 H (9-20) mg/dL Creatinine 1.07 (0.7-1.3) mg/dL Estim Creat Clear Calc Not Reportable Estimated GFR > 60 (59 - ) Glucose 96 (65-110) mg/dL Calcium 9.4 (8.4-10.2) mg/dL Total Bilirubin 3.6 H (0.2-1.3) mg/dL AST 40 (17-59) U/L ALT 24 (6-50) U/L Alkaline Phosphatase 93 (38-126) U/L Troponin I < 0.012 (0.000-0.034) ng/mL Total Protein 8.5 H (6.3-8.2) g/dL Albumin 4.6 (3.5-5.1) g/dL Lipase 73 (23-300) U/L Imaging Data Radiologist's impression: Impressions Chest X-Ray 01/22/25 16:51 IMPRESSION: 1. No acute cardiopulmonary disease. ECG Data EKG #1: EKG Interpretation: tachycardia, sinus rhythm, no ectopy, non-specific ST changes, RBBB and left axis Discharge Plan Discharge Clinical Impression: Syncope, Acute dehydration Patient Disposition: Home Condition: Stable Instructions: Antibiotic Form Additional Instructions: Drink plenty of fluids and follow while bowels diet. Have close follow-up with your primary care physician. If you have any worsening symptoms then please call or return to the emergency department. Patient Language: Turkish Prescriptions: No Action cetirizine 10 mg tablet 10 mg DIRECTED enalapril maleate 10 mg tablet 10 mg DIRECTED atenolol 100 mg tablet 100 mg DIRECTED omeprazole 40 mg capsule,delayed release(DR/EC) 40 mg DIRECTED prednisone 20 mg tablet 40 mg PO DAILY 5 Days Qty: 10 0RF azithromycin [Zithromax] 500 mg tablet 500 mg PO DAILY 5 Days Qty: 5 0RF levetiracetam [Keppra] 1,000 mg Tablet 1,000 mg PO BID cholecalciferol (vitamin D3) [Vitamin D3] 2,000 unit Tablet 2,000 unit PO DAILY Xarelto 20 mg Tablet 20 mg PO DAILY albuterol sulfate [ProAir HFA] 90 mcg/actuation Hfa Aerosol Inhaler 2 inh INHALATION DIRECTED Flovent Diskus 100 mcg/actuation blister with device 2 inh INHALATION DIRECTED erythromycin 5 mg/gram (0.5 %) ointment 0.5 inch RIGHT EYE QID 7 Days Qty: 50 0RF Flovent Diskus 50 mcg/actuation blister with device 1 mcg INHALATION DAILY enalapril maleate 10 mg tablet 10 mg PO DAILY cetirizine 10 mg tablet 10 mg PO DAILY atenolol 100 mg tablet 100 mg PO DAILY levetiracetam 500 mg tablet 500 mg PO DAILY prednisone 20 mg tablet prednisone 20 mg tablet omeprazole 40 mg capsule,delayed release(DR/EC) 40 mg PO DAILY albuterol sulfate 90 mcg/actuation HFA aerosol inhaler 2 puff INHALATION DAILY azithromycin 500 mg tablet Xarelto 20 mg tablet 20 mg PO DAILY Xarelto 20 mg tablet Follow-up/Referrals: PHYSICIAN,YARD DRIVER [Primary Care Provider, Internal Medicine]
[2025-01-22 15:06] LABS: INR 1.2; Prothrombin Time 15.0 Seconds (11.1-14.7)
[2025-01-22 15:07] LABS: Partial Thromboplastin Time 21.0 Seconds (22.3-36.8)
[2025-01-22] MEDS: ASPIRIN 81 MG CHEWABLE TABLET 324 MG PO (15:11)
[2025-01-22] MEDS: LACTATED RINGERS 600 ML 999 ML IV CONT (15:11)
--- OUTSIDE RECORDS SUMMARY | 2025-01-22 15:29 | XMS_ITS | Clinical Summary ---
Author Organization [facility] Address [facility] [place] [address] Care Team Providers Care Personnel Manager Name Role Phone Unavailable Primary Care Provider [...]
--- OUTSIDE RECORDS SUMMARY | 2025-01-22 15:29 | XMS_ITS | Clinical Summary ---
Author Organization [facility] Address [address] [place] [address] Care Team Providers Care Tub Washer Name Role Phone Rm Israel MD Primary Care Provider Emily De PA-C Unavailable Source Comments [facility],non-owned Affiliates and Associated Physician Practices is amultiple site organization consisting of ambulatory clinics and hospital sitesin [place], [place], [place] and [place]. This disclosure is being madepursuant to the Care Everywhere program and may not contain all information available regarding this patient. Last updated 18.[facility] Allergies No known active allergies Medications * Be aware that medications may not be up to date on this document. Alwaysverify current medications with the patient. fluticasone propionate (FLONASE) 50 MCG/ACT nasal spray Accord 2 (two) sprays into each nostril once [...] Had surgery when 2 days old at [facility]. 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) 01/09/2025 8:00 AM CDT - 01/09/2025 10:28 AM CDT Hospital Encounter [facility] US [address] [place] [address] Discharge Disposition: Home or Self Care 01/09/2025 [...] Neg Hx Long QT Syndrome Neg Hx OK<55(male) Neg Hx OK<65(female) Neg Hx Marfan Syndrome Neg Hx Pacemaker [...] on file 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 Gender Identity Not on file Sexual Orientation [...] st Contact Info) Description 04/04/2025 9:30 AM PLANT SCIENTIST Office Visit [facility] - Pulmonology [address] [place] [address] [place] [phone] Nasim Barrow MD [address] [place] [address] [address] DIV OF PULMONARY/[place] [id number] 01/01/2026 9:30 AM CDT Appointment [facility] [address] [place] [phone] Bro Xavier MD [address] [place] [address] [address] [place] [address] 01/01/2026 10:30 AM CDT Office Visit [facility] - GI [address] [place] [address] [place] [address] Bro Xavier MD [address] [place] [address] Health Maintenance Due Date Last Done Comments [...] HEPATITIS C ANTIBODY Routine 05/28/2015 9:59 AM PLANT SCIENTIST from Last 3 Months or Most Recently Relevant to Health Maintenance Results * ALPHA FETOPROTEIN BLOOD TUMOR MARKER (01/09/2025 10:45 AM CDT) Alpha-Fetoprote in Tumor Marker 4.4 <=8.3 ng/mL 01/09/2025 11:50 AM CDT [facility] Comment: AFP values will vary depending on testing procedure used. Results are not comparable across different methods. AFP values obtained by [facility] using an De Oliveira Alinity Immunoassay. Blood BLOOD SPECIMEN / Unknown Lab Venipuncture / Unknown 01/09/2025 10:45 AM CDT 01/09/2025 10:56 AM CDT us Bro Xavier MD LAB - CHEMISTRY ORDERABLES Fin al Result [facility] [address] [place] [phone] [phone] * PT-INR (01/09/2025 10:45 AM CDT) Pathologist [facility] PT 14.1 12.1 - 14.8 Seconds 01/09/2025 11:23 AM T [facility] INR 1.1 See Comment 01/09/2025 11:23 AM [facility] Comment:The suggested therap eutic range for standard coumadin (warfarin) therapy is an INR of 2.0-3.0. For high-risk patients (Mechanical Mitral Valve Prosthesis, etc.), the suggested prophylactic therapeutic range is an INR of 2.5-3.5. Blood BLOOD SPECIMEN / Unknown Lab Venipuncture / Unknown 01/09/2025 10:45 AM CDT 01/09/2025 10:49 AM CDT Bro Xavier MD LAB - COAGULATION ORDERABLES F inal Result [address] [address], [facility] [phone] * (ABNORMAL) CBC W/O DIFFERENTIAL (01/09/2025 10:45 AM CDT) [facility] WBC 6.3 4.0 - 10.7 x10E9/L 01/09/2025 11:33 AM [facility] RBC Count 5.62 4.30 - 5.80 x10E12/L 01/09/2025 11:33 AM [facility] Hemoglobin 17.2 13.3 - 17.5 g/dL 01/09/2025 11:33 AM [facility] Hematocrit 50.6 38.7 - 51.1 % 01/09/2025 11:33 AM [facility] MCV 90.0 80.0 - 98.0 fL 01/09/2025 11:33 AM [facility] MCH 30.6 26.7 - 33.6 pg 01/09/2025 11:33 AM [facility] MCHC 34.0 31.7 - 36.3 g/dL 01/09/2025 11:33 AM [facility] RDW-CV 12.6 11.3 - 14.8 % 01/09/2025 11:33 AM [facility] Platelet Count 88(L) 150 - 420 x10E9/L 01/09/2025 11:33 AM [facility] MPV 11.7(H) 7.8 - 11.4 fL 01/09/2025 11:33 AM [facility] Blood BLOOD SPECIMEN / Unknown Lab Venipuncture / Unknown 01/09/2025 10:45 AM CDT 01/09/2025 10:56 AM CDT us Bro Xavier MD LAB - HEMATOLOGY ORDERABLES Fi nal Result [facility] [address] [place] [phone], [facility] [phone] * (ABNORMAL) COMPREHENSIVE METABOLIC PANEL (01/09/2025 10:45 AM CDT) BUN 17 7 - 26 mg/dL 01/09/2025 11:54 AM [facility] Creatinine 0.87 0.71 - 1.16 mg/dL 01/09/2025 11:54 AM [facility] Sodium 139 136 - 145 mmol/L 01/09/2025 11:54 AM [facility] Potassium 4.1 3.5 - 4.5 mmol/L 01/09/2025 11:54 AM [facility] Chloride 108(H) 98 - 107 mmol/L 01/09/2025 11:54 AM [facility] CO2 22 22 - 29 mmol/L 01/09/2025 11:54 AM [facility] Glucose 86 70 - 99 mg/dL 01/09/2025 11:54 AM [facility] Calcium 9.9 8.4 - 10.2 mg/dL 01/09/2025 11:54 AM [facility] Protein Total 8.6(H) 6.0 - 8.3 g/dL 01/09/2025 11:54 AM [facility] Albumin 5.1(H) 3.4 - 5.0 g/dL 01/09/2025 11:54 AM [facility] Bilirubin Total 2.7(H) 0.2 - 1.2 mg/dL 01/09/2025 11:54 AM [facility] Alkaline Phosphatase 112 40 - 150 U/L 01/09/2025 11:54 AM [facility] ALT 19 5 - 55 U/L 01/09/2025 11:54 AM [facility] AST 23 5 - 34 U/L 01/09/2025 11:54 AM [facility] Anion Gap 9 6 - 16 01/09/2025 11:54 AM [facility] BUN/Creatinine Ratio 20 7 - 23 01/09/2025 11:54 AM [facility] Osmolality Calculated 289 275 - 295 mOsm/kg 01/09/2025 11:54 AM [facility] Albumin/Globulin Ratio 1.5 1.1 - 2.3 01/09/2025 11:54 AM [facility] eGFR by CKD-EPI >90 >=90 mL/min/1.7 3 m2 01/09/2025 11:54 AM [facility] Comment:Estimated Glomerular Filtration Rate (eGFR) calculated using the CKD-EPI Creatinine Equation (2020), per the National Kidney Foundation and [place] Society of Nephrology recommendations. Blood BLOOD SPECIMEN / Unknown Lab Venipuncture / Unknown 01/09/2025 10:45 AM CDT 01/09/2025 10:56 AM CDT us Bro Xavier MD LAB - CHEMISTRY ORDERABLES Fin al Result [facility] [address] [place] [address], [facility] [phone] * US Abdomen Limited (01/09/2025 8:50 AM CDT) Anatomical Region Laterality Modality Abdomen Ultrasound 01/09/2025 8:52 AM CDT Impressions 01/09/2025 10:11 AM CDT Impression: Cirrhotic liver morphology. No intrahepatic lesions visualized. Liver Visualization Score B: Moderate limitations. US-1 Negative. Repeat surveillance US in 6 months. Report drafted by Ale Sanchez (resident). > Dictated by Applications System Analyst I, Charissa Quiles have personally reviewed and [...] by Ale Sanchez (resident). > Dictated by Applications System Analyst I, Charissa Quiles have personally reviewed and interpreted this examination/study. > Interpreting Provider: Charissa Quiles on 01/09/2025 10:11 AM Bro Xavier MD US ORDERABLES Final Result * HEPATITIS C ANTIBODY (05/28/2015 9:59 AM PLANT SCIENTIST) Pathologist [facility] Hepatitis C Antibody Non-react [facility] Comment: Hepatitis C Antibody screen indicates no serologic evidence of past or current infection with Hepatitis C Virus. Patients with unexplained liver disease who are immunocompromised or suspected of having acute Hepatitis C infection may benefit from Nucleic Acid Test (CHAPO) for Hepatitis C Viral RNA to confirm Hepatitis C status. Blood specimen (specimen) BLOOD SPECIMEN / Unknown 05/28/2015 9:59 AM PLANT SCIENTIST 05/28/2015 10:08 AM PLANT SCIENTIST Ronnie Bella MD LAB - CHEMISTRY OR DERABLES Final Result Performing Organization Address City/State/[facility] Co de Phone Number [facility] [address] [place] [address], [facility] [phone] from Last 3 Months or Most Recently Relevant to Health Maintenance Insurance [facility] Member Subscriber Plan / Payer (Ef fective 2016-Present) Name:Darien Herring Jr. Relation to Subscriber:Self Name:DARIEN HERRING Payer ID:[id number] (NAIC) Group ID:Not on file Type:Medicaid Managed Care Address: ATT CLAIMS DEPARTMENT [address] Member Subscriber Plan / Payer (Ef fective 2016-Present) Name:Darien Herring Jr. Relation to Subscriber:Self Name:DARIEN HERRING Payer ID:[id number] (NAIC) Group ID:Not on file Type:Medicaid Managed Care Address: [facility] CLAIMS DEPARTMENT [address] [place] [address] [place] [address] [place] [address] [place] [address] [place] [address] [place] [address] [place] [address] [place] [address] [place] [address] [place] [address] [place] [address] Advance Directives Documents on File Type Date Recorded Patient Embedded Software Manager Expl anation Advance Directives and Livin g Will 09/03/2015 12:00 AM Care Teams Tub Washer Relationship Specialty Start Date End Date Rm Israel MD [address] [facility] [address] [place] [address] PCP - General 07/19/22 Emily De PA-C [address] [place] [address] Physician Document Control Associate Pediatric Cardiology 12/24/23
--- OUTSIDE RECORDS SUMMARY | 2025-01-22 15:29 | XMS_ITS | Encounter Summary ---
Author Organization [facility] Address [address] [facility] [place] [address] Care Team Providers Care Icer Air Conditioning Name Role Phone Rm Israel MD Primary Care Provider [phone] Emily De PA-C Unavailable Encounter Details Date Type Department Care Team (Late st Contact Info) Description 01/11/2025 Results Follow-Up [facility] - GI [address] [facility] [place] [phone] Bro Xavier MD [facility] [place] [address] Social History Tobacco Use Types Packs/Day Years [...] on file 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 Gender Identity Not on file Sexual Orientation [...] st Contact Info) Description 04/04/2025 9:30 AM CONTINUOUS LINTER DRIER OPERATOR Office Visit [facility] - Pulmonology [address] [place] [address] Nasim Barrow MD [address] [place] [address] [address] DIV OF PULMONARY/[place] [address] 01/01/2026 9:30 AM CDT Appointment [facility] [address] [place] [address] Bro Xavier MD [address] [place] [address] [address] [place] [address] 01/01/2026 10:30 AM CDT Office Visit [facility] - GI [address] [facility] [place] [address] Bro Xavier MD [address] [place] [address] documented as of this encounter Goals Goal [...] On track( 9:41 AM CDT) No Catrina Oneal, ZORAIDA Note: Expected end date: ongoing Interventions: [...] on filedocumented in this encounter Care Teams Icer Air Conditioning Relationship Specialty Start Date End Date Rm Israel MD [address] [place] [address] PCP - General 07/19/22 Emily De PA-C [address] [place] [address] Physician Seaman Officer Pediatric Cardiology 12/24/23 documented as of this encounter
--- OUTSIDE RECORDS SUMMARY | 2025-01-22 15:29 | XMS_ITS | Clinical Summary ---
Author Organization [facility] [place] Address [facility] [place] [address] Care Team Providers Care Cabinetmaker Helper Name Role Phone Jose Angel Chow MD Primary Care Provider [phone] Allergies No known active allergies Medications albuterol [...] on file Legal Sex Male 6:11 PM SOLUTION DIRECTOR Gender Identity Not on file Sexual Orientation Not on file Obstetrics History Last Filed Vital Signs Vital Sign Reading Time Taken Comments Blood Pressure 116/80 09/25/2023 11:19 AM CDT Pulse 98 09/25/2023 11:19 AM CDT Temperature 36.3 C (97.3 F) 04/07/2022 11:04 AM SOLUTION DIRECTOR Respiratory Rate 20 04/07/2022 11:04 AM SOLUTION DIRECTOR Oxygen Saturation 96% 04/06/2023 10:34 AM SOLUTION DIRECTOR Inhaled Oxygen Concentration - - Weight 93.9 [...] 0, 04/15/2019, 02/20/2018, Additional history exists Insurance [facility] Advance Directives For more information, please contact: [phone] Documents on File Type Date Recorded Patient Solar Installation Supervisor Expl anation ADVANCE DIRECTIVE 11/20/2014 12:00 AM ESTRADA BUI WILL ADVANCE DIRECTIVE 11/20/2014 12:00 AM BAILEY Baumann OF [employer] AND SCIENCE DIVISION CHAIR FINANCIAL/MEDICAL Care Teams Cabinetmaker Helper Relationship Specialty Start Date End Date Jose Angel Chow MD PCP - General 09/26/16
[2025-01-22 16:29] LABS: Hematocrit 53.5 % (42.0-52.0); Hemoglobin 18.0 g/dL (14.0-18.0); Immature Granulocyte Percent A 0.4 % (0-0.5); Immature Platelet Fraction Pct 6.3 % (0.9-11.2); Lymphocytes Absolute Auto 0.77 K/mm3 (0.9-3.2); Mean Corpuscular HGB Conc 33.6 g/dl (32-36); Mean Corpuscular Hemoglobin 31.1 pg (26-34); Mean Corpuscular Volume 92.6 fl (80-100); Nucleated Red Blood Cells Absolute Auto 0.000 K/mm3 (0.0-0.012); Nucleated Red Blood Cells Perc 0.0 % (0.0-0.2); Platelet Count Result 109 k/mm3 (150-375); Red Blood Count 5.78 M/mm3 (4.6-6.20); White Blood Count 10.7 K/mm3 (4.5-10.0)
[2025-01-22 16:42] LABS: Alanine Aminotransferase 24 U/L (6-50); Albumin Level 4.6 g/dL (3.5-5.1); Alkaline Phosphatase 93 U/L (38-126); Anion Gap 11 mmol/L (4-12); Aspartate Amino Transferase 40 U/L (17-59); Bilirubin,Total 3.6 mg/dL (0.2-1.3); Blood Urea Nitrogen 21 mg/dL (9-20); Calcium 9.4 mg/dL (8.4-10.2); Carbon Dioxide 23 mmol/L (22-30); Chloride 105 mmol/L (98-107); Estimated Glomerular Filt Rate > 60; Glucose 96 mg/dL (65-110); Potassium 5.0 mmol/L (3.4-5.0); Sodium 139 mmol/L (137-145); Total Protein 8.5 g/dL (6.3-8.2)
[2025-01-22 16:53] LABS: Troponin I < 0.012 ng/mL (0.000-0.034)
[2025-01-22 17:02] LABS: Lipase 73 U/L (23-300)
== END 2025-01-22 18:30 | disposition home or self-care (01) ==
PROVIDERS: Emergency Medicine; Emergency Provider Emergency Medicine
DX: R55 Syncope and collapse (principal); E86.0 Dehydration; G40.909 Epilepsy, unspecified, not intractable, without status epilepticus; J45.909 Unspecified asthma, uncomplicated; N28.9 Disorder of kidney and ureter, unspecified; K21.9 Gastro-esophageal reflux disease without esophagitis; Q22.6 Hypoplastic right heart syndrome; Q22.4 Congenital tricuspid stenosis; Q25.5 Atresia of pulmonary artery; Z86.718 Personal history of other venous thrombosis and embolism; Z79.01 Long term (current) use of anticoagulants; Z79.899 Other long term (current) drug therapy; R00.0 Tachycardia, unspecified; I45.2 Bifascicular block
CPT/HCPCS: 36415; 71046; 80053; 83690; 84484; 85025; 85055; 85610; 85730; 93005; 96360; 99284; A9270; J7120